=== PATIENT | female | born 1950 | race Caucasian/White ===

== ENCOUNTER 2018-08-11 20:51 | Inpatient (IN) ==
[2018-08-11] MEDS ORDERED: Sod Chloride 0.9% Inj 1,000 ML IV.SIG ONE (21:17)
--- NOTE | 2018-08-11 21:27 | ED ---
HPI General Chief Complaint: Alcohol Stated Complaint: ETOH/syncope Time Seen by Provider: 08/11/18 21:04 Source: patient, EMS and RN notes reviewed Mode of arrival: EMS Limitations: other (alcohol) History of Present Illness HPI narrative: 67-year-old female that presents to the ED via EV[facility] for evaluation of syncope and alcohol. Per report I was given and per EVAC patient apparently was found in a polyp and apparently was drinking heavily. Per patient she does drink a lot. Apparently she had a syncopal episode witnessed at the polyp. Patient fell and hit her head. Patient currently denies any symptoms but she is also intoxicated and is hard to get a history from. She does go back to sleep but is arousable. She drinks a lot and she is "an alcoholic ". She denies any other medical issues at this time. She denies any pain. She cannot really tell me this is never happened before. Again history is limited because patient is intoxicated so most the history is obtained from the EVAC report. Related Data Home Medications Medication Instructions Recorded Confirmed No Known Home Medications 08/12/18 08/12/18 Allergies Allergy/AdvReac Type Severity Reaction Status Date / Time No Known Allergies Allergy Uncoded 02/13/15 09:20 Review of Systems ROS Unobtainable ROS Unobtainable: unobtainable due to mental status [facility] Surgical History Surgical History H/O section (Acute) Social History Social History Substance History: No History of Abuse Second Hand Smoke Exposure: No Smoking Status: Never smoker How Often Do You Have a Drink Containing Alcohol: 4 or more times a week Recent Travel in [facility] within the Last 8 Weeks: No Recent Out of Country Travel within the Last 8 Weeks: No Immunization History Tetanus Immunization: Unsure Exam Narrative Exam Narrative: GENERAL: SKIN: Warm and dry. HEAD: Atraumatic. Normocephalic. EYES: Pupils equal and round 4 mms reactive to lightand accommodation.. No scleral icterus. No injection or drainage. ENT: No nasal bleeding or discharge. Mucous membranes pink and moist. Tongue is midline. No uvula deviation. NECK: Trachea midline. No JVD. CARDIOVASCULAR: Regular rate and rhythm. RESPIRATORY: No accessory muscle use. Clear to auscultation. Breath sounds equal bilaterally. GASTROINTESTINAL: Abdomen soft, non-tender, nondistended. Hepatic and splenic margins not palpable. MUSCULOSKELETAL: Extremities without clubbing, cyanosis, or edema. No obvious deformities. Full range of motion of the upper and lower extremities bilaterally. 2+ pulses bilaterally. NEUROLOGICAL: Awake and alert. No obvious cranial nerve deficits. Motor grossly within normal limits. Five out of 5 muscle strength in the arms and legs. Normal speech. PSYCHIATRIC: Intoxicated mood and affect; insight and judgment normal. Course Initial Documented Vital Signs Temperature 98.1 F 08/11/18 20:56 Pulse Rate 80 08/11/18 20:56 Blood Pressure 105/63 08/11/18 20:56 Pulse Oximetry 97 08/11/18 20:56 Last Documented Vital Signs Temperature 98.3 F 08/15/18 07:14 Pulse Rate 63 08/15/18 03:30 Respiratory Rate 16 08/15/18 07:14 Blood Pressure 128/71 08/15/18 07:14 Pulse Oximetry 97 08/15/18 07:14 Medical Decision Making MARTINA Attestation MARTINA supervised visit: Yes Attestation: I, Dr. Evangelista, have reviewed the advance practice practitioner's documentation and am in agreement, met with the patient face to face, made the diagnosis, and the medical decision making was done by me. The patient was initially evaluated by Yoel, the MARTINA. Please see their complete history and physical. *My assessment and Findings: The patient presents with a reported history of drinking alcohol this evening and then having an episode of syncope. The patient's history is limited as the patient is acutely intoxicated with alcohol. During the course of the patient's emergency department visit, the patient's history, examination, and differential diagnosis were reviewed with the patient. The patient was placed on a tar distillation supervisor with oximetry and frequent blood pressure monitoring. The patient had IV access obtained and blood work sent for analysis. The patient's diagnostic studies were reviewed and remarkable for A white count of 8.4, hemoglobin 11.6, platelets 125 with a normal differential, PT 12.4, PTT 24.2, chemistry is remarkable for a sodium of 135, glucose 124, protein corrected calcium 7.2, AST 195, ALT 147, alk phos 119, total protein 6.3, albumin 2.4. Urinalysis showed no acute abnormality, urine drug screen was positive for cannabinoids, alcohol level 295. CHEST X-RAY: Showed minimal basilar atelectasis, no other acute abnormality, a CT scan of the brain shows no acute abnormality. The patient will be admitted to the hospital for altered mentation related to alcohol intoxication associated with syncope. The patient's case including history, pertinent physical examination findings, and laboratory studies were discussed with the FP residents. It was agreed that the patient would be admitted to the the FP resident's service. The patient's results were discussed with the patient, including the plan of care. I explained that further testing and/ or monitoring is indicated based on the patient's history, examination, and/ or laboratory findings. Therefore, I recommended admission for additional evaluation. The patient expressed understanding and was agreeable with this plan. The patient was admitted to the hospital in guarded condition and sent to a bed under the care of the FP residents. MDM Narrative Medical decision making narrative: 67-year-old female that presents to the ED for evaluation of syncope and alcohol. Patient was properly examined and was found to have signs and symptoms of unclear etiology. Labs and imaging were ordered. Labs and imaging still pending at the writing of this note. Case signed out to my attending Dr Evangelista pending disposition. Medical Screen Exam Complete: Yes Emergency Medical Condition: Yes Differential Diagnosis Differential Diagnosis: Intoxication versus altered mental status versus syncope versus UTI versus alcohol abuse versus ACS Medical Records Medical records reviewed: Yes I reviewed the patient's medical records. Lab Data Lab results reviewed: Yes I reviewed the patient's lab results. Result diagrams: 08/15/18 06:16 08/15/18 06:16 Lab Results 08/11/18 08/11/18 08/11/18 Range/Units 21:21 21:22 21:22 WBC (4.0-11.0) th/mm3 RBC (4.00-5.30) mil/mm3 Hgb (11.6-15.3) gm/dL Hct (35.0-46.0) % MCV (80.0-100.0) fL MCH (27.0-34.0) pg MCHC (32.0-36.0) % RDW (11.6-17.2) % Plt Count (150-450) th/mm3 MPV (7.0-11.0) fL Prelim Diff (Auto) Neut % (Auto) (16.0-70.0) % Lymph % (Auto) (9.0-44.0) % [place] % (Auto) (0.0-8.0) % Eos % (Auto) (0.0-4.0) % Baso % (Auto) (0.0-2.0) % Neut # (Auto) (1.8-7.7) th/mm3 Lymph # (Auto) (1.0-4.8) th/mm3 [place] # (Auto) (0.0-0.9) th/mm3 Eos # (Auto) (0.0-0.4) th/mm3 Baso # (Auto) (0.0-0.2) th/mm3 WBC Differential Diff Scan Differential Comment Platelet Estimate (Normal) Platelet Morphology (Normal) PT 12.4 H (9.8-11.6) sec INR 1.2 Ratio APTT 24.2 (23.4-31.7) sec Sodium 135 L (136-145) meq/L Potassium 3.6 (3.5-5.1) meq/L Chloride 103 (98-107) meq/L Carbon Dioxide 21.0 (21.0-32.0) meq/L Anion Gap 11 (5-15) meq/L BUN 9 (7-18) mg/dL Creatinine 0.66 (0.50-1.00) mg/dL Estimated GFR 89 (>89) mL/min POC Glucose 127 H (68-110) mg/dl Random Glucose 124 H (74-106) mg/dL Calcium 6.8 L* (8.5-10.1) mg/dL Prot Corrected Calcium 7.2 L* (8.5-10.1) mg/dL Magnesium 1.8 (1.5-2.5) mg/dL Iron (50-170) mcg/dL TIBC (250-450) mcg/dL % Saturation (20-50) % Ferritin (8-252) ng/mL Total Bilirubin 0.4 (0.2-1.0) mg/dL Direct Bilirubin (0.0-0.2) mg/dL Indirect Bilirubin (0.0-0.8) mg/dL AST 195 H (15-37) U/L ALT 147 H (10-53) U/L Alkaline Phosphatase 119 H (45-117) U/L Ammonia (11-32) mcmol/L Troponin I (0.02-0.05) ng/mL Total Protein 6.3 L (6.4-8.2) g/dL Albumin 2.4 L (3.4-5.0) g/dL Ceruloplasmin (18-53) mg/dL Tumor Marker AFP (0.5-8.0) ng/mL Urine Color (Yellw/Straw) Urine Clarity (Clear) Urine pH (5.0-8.5) Ur Specific [place] (1.002-1.035) Urine Protein (Neg-Trace) mg/dL Urine Glucose (UA) (Negative) mg/dL Urine Ketones (Negative) mg/dL Urine Occult Blood (Negative) Urine Nitrate (Negative) Urine Bilirubin (Negative) Urine Urobilinogen (Less than 2) mg/dL Ur Leukocyte Esterase (Negative) Urine RBC (0-3) /hpf Urine WBC (0-5) /hpf Ur Squamous Epith Cells (0-5) /hpf Micro UA Comment Ur Microscopic Review Urine Culture Comments Urine Opiates Screen (Neg) Ur Barbiturates Screen (Neg) Ur Amphetamines Screen (Neg) U Benzodiazepines Scrn (Neg) Urine Cocaine Screen (Neg) U Cannabinoids Screen (Neg) Serum Alcohol (0-5) mg/dL Rheumatoid Factor (<14) IU/mL MICA Screen (NEGATIVE) MICA Titer MICA Pattern SS-A Antibody (<1.0 NEGATIVE) AI SS-B Antibody (<1.0 NEGATIVE) AI Sm (Bryant) Antibody (<1.0 NEGATIVE) AI SM/SIFTER AND MILLER Antibody (<1.0 NEGATIVE) AI Scl-70 Antibody (<1.0 NEGATIVE) AI Anti-ds DNA Titer (Crith) (<1:10) Anti-ds DNA (Crithidia) (NEGATIVE) Mitochondria M2 IgG Ab (0-20.0) U Anti-Smooth Muscle Ab (Negative) Hepatitis A IgM Ab (Nonreactive) Hep Bs Antigen (Nonreactive) Hep B Core IgM Ab (Nonreactive) Hep C IgG Ab (Nonreactive) HCV RNA (PCR) IUs/ml IU/mL HCV RNA PCR log IUs/ml LogIU/mL 08/11/18 08/11/18 08/12/18 Range/Units 21:22 21:22 05:30 WBC 8.4 (4.0-11.0) th/mm3 RBC 3.52 L (4.00-5.30) mil/mm3 Hgb 11.6 (11.6-15.3) gm/dL Hct 33.5 L (35.0-46.0) % MCV 95.2 (80.0-100.0) fL MCH 33.0 (27.0-34.0) pg MCHC 34.7 (32.0-36.0) % RDW 12.8 (11.6-17.2) % Plt Count 125 L (150-450) th/mm3 MPV 8.6 (7.0-11.0) fL Prelim Diff (Auto) Slide review pending Neut % (Auto) 47.1 (16.0-70.0) % Lymph % (Auto) 40.9 (9.0-44.0) % [place] % (Auto) 7.5 (0.0-8.0) % Eos % (Auto) 3.5 (0.0-4.0) % Baso % (Auto) 1.0 (0.0-2.0) % Neut # (Auto) 4.0 (1.8-7.7) th/mm3 Lymph # (Auto) 3.4 (1.0-4.8) th/mm3 [place] # (Auto) 0.6 (0.0-0.9) th/mm3 Eos # (Auto) 0.3 (0.0-0.4) th/mm3 Baso # (Auto) 0.1 (0.0-0.2) th/mm3 WBC Differential . Diff Scan Auto diff confirmed Differential Comment . Platelet Estimate (Normal) Platelet Morphology (Normal) PT (9.8-11.6) sec INR Ratio APTT (23.4-31.7) sec Sodium (136-145) meq/L Potassium (3.5-5.1) meq/L Chloride (98-107) meq/L Carbon Dioxide (21.0-32.0) meq/L Anion Gap (5-15) meq/L BUN (7-18) mg/dL Creatinine (0.50-1.00) mg/dL Estimated GFR (>89) mL/min POC Glucose (68-110) mg/dl Random Glucose (74-106) mg/dL Calcium (8.5-10.1) mg/dL Prot Corrected Calcium (8.5-10.1) mg/dL Magnesium (1.5-2.5) mg/dL Iron (50-170) mcg/dL TIBC (250-450) mcg/dL % Saturation (20-50) % Ferritin (8-252) ng/mL Total Bilirubin (0.2-1.0) mg/dL Direct Bilirubin (0.0-0.2) mg/dL Indirect Bilirubin (0.0-0.8) mg/dL AST (15-37) U/L ALT (10-53) U/L Alkaline Phosphatase (45-117) U/L Ammonia (11-32) mcmol/L Troponin I Less than 0.02 L (0.02-0.05) ng/mL Total Protein (6.4-8.2) g/dL Albumin (3.4-5.0) g/dL Ceruloplasmin (18-53) mg/dL Tumor Marker AFP (0.5-8.0) ng/mL Urine Color Straw (Yellw/Straw) Urine Clarity Clear (Clear) Urine pH 6.0 (5.0-8.5) Ur Specific [place] 1.003 (1.002-1.035) Urine Protein Negative (Neg-Trace) mg/dL Urine Glucose (UA) Negative (Negative) mg/dL Urine Ketones Negative (Negative) mg/dL Urine Occult Blood Negative (Negative) Urine Nitrate Negative (Negative) Urine Bilirubin Negative (Negative) Urine Urobilinogen Less than 2 (Less than 2) mg/dL Ur Leukocyte Esterase Negative (Negative) Urine RBC 1 (0-3) /hpf Urine WBC 1 (0-5) /hpf Ur Squamous Epith Cells <1 (0-5) /hpf Micro UA Comment Culture not ind Ur Microscopic Review Not Reportable Urine Culture Comments Culture not ind Urine Opiates Screen (Neg) Ur Barbiturates Screen (Neg) Ur Amphetamines Screen (Neg) U Benzodiazepines Scrn (Neg) Urine Cocaine Screen (Neg) U Cannabinoids Screen (Neg) Serum Alcohol 298 H (0-5) mg/dL Rheumatoid Factor (<14) IU/mL MICA Screen (NEGATIVE) MICA Titer MICA Pattern SS-A Antibody (<1.0 NEGATIVE) AI SS-B Antibody (<1.0 NEGATIVE) AI Sm (Bryant) Antibody (<1.0 NEGATIVE) AI SM/SIFTER AND MILLER Antibody (<1.0 NEGATIVE) AI Scl-70 Antibody (<1.0 NEGATIVE) AI Anti-ds DNA Titer (Crith) (<1:10) Anti-ds DNA (Crithidia) (NEGATIVE) Mitochondria M2 IgG Ab (0-20.0) U Anti-Smooth Muscle Ab (Negative) Hepatitis A IgM Ab (Nonreactive) Hep Bs Antigen (Nonreactive) Hep B Core IgM Ab (Nonreactive) Hep C IgG Ab (Nonreactive) HCV RNA (PCR) IUs/ml IU/mL HCV RNA PCR log IUs/ml LogIU/mL 08/12/18 08/12/18 08/12/18 Range/Units 05:30 10:05 10:05 WBC 4.5 (4.0-11.0) th/mm3 RBC 3.49 L (4.00-5.30) mil/mm3 Hgb 11.2 L (11.6-15.3) gm/dL Hct 33.9 L (35.0-46.0) % MCV 96.9 (80.0-100.0) fL MCH 32.1 (27.0-34.0) pg MCHC 33.1 (32.0-36.0) % RDW 13.6 (11.6-17.2) % Plt Count 102 L (150-450) th/mm3 MPV 7.8 (7.0-11.0) fL Prelim Diff (Auto) Neut % (Auto) 59.6 (16.0-70.0) % Lymph % (Auto) 30.8 (9.0-44.0) % [place] % (Auto) 6.4 (0.0-8.0) % Eos % (Auto) 2.8 (0.0-4.0) % Baso % (Auto) 0.4 (0.0-2.0) % Neut # (Auto) 2.7 (1.8-7.7) th/mm3 Lymph # (Auto) 1.4 (1.0-4.8) th/mm3 [place] # (Auto) 0.3 (0.0-0.9) th/mm3 Eos # (Auto) 0.1 (0.0-0.4) th/mm3 Baso # (Auto) 0.0 (0.0-0.2) th/mm3 WBC Differential . Diff Scan Differential Comment Auto diff final Platelet Estimate (Normal) Platelet Morphology (Normal) PT (9.8-11.6) sec INR Ratio APTT (23.4-31.7) sec Sodium 140 (136-145) meq/L Potassium 3.9 (3.5-5.1) meq/L Chloride 109 H (98-107) meq/L Carbon Dioxide 18.1 L (21.0-32.0) meq/L Anion Gap 13 (5-15) meq/L BUN 6 L (7-18) mg/dL Creatinine 0.46 L (0.50-1.00) mg/dL Estimated GFR Greater than 89 (>89) mL/min POC Glucose (68-110) mg/dl Random Glucose 88 (74-106) mg/dL Calcium 7.5 L (8.5-10.1) mg/dL Prot Corrected Calcium (8.5-10.1) mg/dL Magnesium 1.8 (1.5-2.5) mg/dL Iron (50-170) mcg/dL TIBC (250-450) mcg/dL % Saturation (20-50) % Ferritin (8-252) ng/mL Total Bilirubin 0.4 (0.2-1.0) mg/dL Direct Bilirubin (0.0-0.2) mg/dL Indirect Bilirubin (0.0-0.8) mg/dL AST 174 H (15-37) U/L ALT 140 H (10-53) U/L Alkaline Phosphatase 120 H (45-117) U/L Ammonia (11-32) mcmol/L Troponin I (0.02-0.05) ng/mL Total Protein 6.2 L (6.4-8.2) g/dL Albumin 2.4 L (3.4-5.0) g/dL Ceruloplasmin (18-53) mg/dL Tumor Marker AFP (0.5-8.0) ng/mL Urine Color (Yellw/Straw) Urine Clarity (Clear) Urine pH (5.0-8.5) Ur Specific [place] (1.002-1.035) Urine Protein (Neg-Trace) mg/dL Urine Glucose (UA) (Negative) mg/dL Urine Ketones (Negative) mg/dL Urine Occult Blood (Negative) Urine Nitrate (Negative) Urine Bilirubin (Negative) Urine Urobilinogen (Less than 2) mg/dL Ur Leukocyte Esterase (Negative) Urine RBC (0-3) /hpf Urine WBC (0-5) /hpf Ur Squamous Epith Cells (0-5) /hpf Micro UA Comment Ur Microscopic Review Urine Culture Comments Urine Opiates Screen Neg (Neg) Ur Barbiturates Screen Neg (Neg) Ur Amphetamines Screen Neg (Neg) U Benzodiazepines Scrn Neg (Neg) Urine Cocaine Screen Neg (Neg) U Cannabinoids Screen Pos H (Neg) Serum Alcohol (0-5) mg/dL Rheumatoid Factor (<14) IU/mL MICA Screen (NEGATIVE) MICA Titer MICA Pattern SS-A Antibody (<1.0 NEGATIVE) AI SS-B Antibody (<1.0 NEGATIVE) AI Sm (Bryant) Antibody (<1.0 NEGATIVE) AI SM/SIFTER AND MILLER Antibody (<1.0 NEGATIVE) AI Scl-70 Antibody (<1.0 NEGATIVE) AI Anti-ds DNA Titer (Crith) (<1:10) Anti-ds DNA (Crithidia) (NEGATIVE) Mitochondria M2 IgG Ab (0-20.0) U Anti-Smooth Muscle Ab (Negative) Hepatitis A IgM Ab (Nonreactive) Hep Bs Antigen (Nonreactive) Hep B Core IgM Ab (Nonreactive) Hep C IgG Ab (Nonreactive) HCV RNA (PCR) IUs/ml IU/mL HCV RNA PCR log IUs/ml LogIU/mL 08/12/18 08/12/18 08/13/18 Range/Units 10:05 10:05 12:00 WBC 4.1 (4.0-11.0) th/mm3 RBC 3.76 L (4.00-5.30) mil/mm3 Hgb 12.1 (11.6-15.3) gm/dL Hct 36.3 (35.0-46.0) % MCV 96.5 (80.0-100.0) fL MCH 32.2 (27.0-34.0) pg MCHC 33.4 (32.0-36.0) % RDW 13.5 (11.6-17.2) % Plt Count 101 L (150-450) th/mm3 MPV 8.0 (7.0-11.0) fL Prelim Diff (Auto) Neut % (Auto) (16.0-70.0) % Lymph % (Auto) (9.0-44.0) % [place] % (Auto) (0.0-8.0) % Eos % (Auto) (0.0-4.0) % Baso % (Auto) (0.0-2.0) % Neut # (Auto) (1.8-7.7) th/mm3 Lymph # (Auto) (1.0-4.8) th/mm3 [place] # (Auto) (0.0-0.9) th/mm3 Eos # (Auto) (0.0-0.4) th/mm3 Baso # (Auto) (0.0-0.2) th/mm3 WBC Differential Diff Scan Differential Comment Platelet Estimate (Normal) Platelet Morphology (Normal) PT (9.8-11.6) sec INR Ratio APTT (23.4-31.7) sec Sodium (136-145) meq/L Potassium (3.5-5.1) meq/L Chloride (98-107) meq/L Carbon Dioxide (21.0-32.0) meq/L Anion Gap (5-15) meq/L BUN (7-18) mg/dL Creatinine (0.50-1.00) mg/dL Estimated GFR (>89) mL/min POC Glucose (68-110) mg/dl Random Glucose (74-106) mg/dL Calcium (8.5-10.1) mg/dL Prot Corrected Calcium (8.5-10.1) mg/dL Magnesium Cancelled (1.5-2.5) mg/dL Iron (50-170) mcg/dL TIBC (250-450) mcg/dL % Saturation (20-50) % Ferritin (8-252) ng/mL Total Bilirubin (0.2-1.0) mg/dL Direct Bilirubin (0.0-0.2) mg/dL Indirect Bilirubin (0.0-0.8) mg/dL AST (15-37) U/L ALT (10-53) U/L Alkaline Phosphatase (45-117) U/L Ammonia 43 H (11-32) mcmol/L Troponin I (0.02-0.05) ng/mL Total Protein (6.4-8.2) g/dL Albumin (3.4-5.0) g/dL Ceruloplasmin (18-53) mg/dL Tumor Marker AFP (0.5-8.0) ng/mL Urine Color (Yellw/Straw) Urine Clarity (Clear) Urine pH (5.0-8.5) Ur Specific [place] (1.002-1.035) Urine Protein (Neg-Trace) mg/dL Urine Glucose (UA) (Negative) mg/dL Urine Ketones (Negative) mg/dL Urine Occult Blood (Negative) Urine Nitrate (Negative) Urine Bilirubin (Negative) Urine Urobilinogen (Less than 2) mg/dL Ur Leukocyte Esterase (Negative) Urine RBC (0-3) /hpf Urine WBC (0-5) /hpf Ur Squamous Epith Cells (0-5) /hpf Micro UA Comment Ur Microscopic Review Urine Culture Comments Urine Opiates Screen (Neg) Ur Barbiturates Screen (Neg) Ur Amphetamines Screen (Neg) U Benzodiazepines Scrn (Neg) Urine Cocaine Screen (Neg) U Cannabinoids Screen (Neg) Serum Alcohol (0-5) mg/dL Rheumatoid Factor (<14) IU/mL MICA Screen (NEGATIVE) MICA Titer MICA Pattern SS-A Antibody (<1.0 NEGATIVE) AI SS-B Antibody (<1.0 NEGATIVE) AI Sm (Bryant) Antibody (<1.0 NEGATIVE) AI SM/SIFTER AND MILLER Antibody (<1.0 NEGATIVE) AI Scl-70 Antibody (<1.0 NEGATIVE) AI Anti-ds DNA Titer (Crith) (<1:10) Anti-ds DNA (Crithidia) (NEGATIVE) Mitochondria M2 IgG Ab (0-20.0) U Anti-Smooth Muscle Ab (Negative) Hepatitis A IgM Ab (Nonreactive) Hep Bs Antigen (Nonreactive) Hep B Core IgM Ab (Nonreactive) Hep C IgG Ab (Nonreactive) HCV RNA (PCR) IUs/ml IU/mL HCV RNA PCR log IUs/ml LogIU/mL 08/13/18 08/13/18 08/13/18 Range/Units 12:00 12:00 15:49 WBC (4.0-11.0) th/mm3 RBC (4.00-5.30) mil/mm3 Hgb (11.6-15.3) gm/dL Hct (35.0-46.0) % MCV (80.0-100.0) fL MCH (27.0-34.0) pg MCHC (32.0-36.0) % RDW (11.6-17.2) % Plt Count (150-450) th/mm3 MPV (7.0-11.0) fL Prelim Diff (Auto) Neut % (Auto) (16.0-70.0) % Lymph % (Auto) (9.0-44.0) % [place] % (Auto) (0.0-8.0) % Eos % (Auto) (0.0-4.0) % Baso % (Auto) (0.0-2.0) % Neut # (Auto) (1.8-7.7) th/mm3 Lymph # (Auto) (1.0-4.8) th/mm3 [place] # (Auto) (0.0-0.9) th/mm3 Eos # (Auto) (0.0-0.4) th/mm3 Baso # (Auto) (0.0-0.2) th/mm3 WBC Differential Diff Scan Differential Comment Platelet Estimate (Normal) Platelet Morphology (Normal) PT (9.8-11.6) sec INR Ratio APTT (23.4-31.7) sec Sodium 144 (136-145) meq/L Potassium 3.9 (3.5-5.1) meq/L Chloride 109 H (98-107) meq/L Carbon Dioxide 28.2 D (21.0-32.0) meq/L Anion Gap 7 (5-15) meq/L BUN 11 (7-18) mg/dL Creatinine 0.62 (0.50-1.00) mg/dL Estimated GFR Greater than 89 (>89) mL/min POC Glucose (68-110) mg/dl Random Glucose 115 H (74-106) mg/dL Calcium 7.7 L (8.5-10.1) mg/dL Prot Corrected Calcium (8.5-10.1) mg/dL Magnesium (1.5-2.5) mg/dL Iron 105 (50-170) mcg/dL TIBC 370 (250-450) mcg/dL % Saturation 28.4 (20-50) % Ferritin 38 Cancelled (8-252) ng/mL Total Bilirubin 0.4 Cancelled (0.2-1.0) mg/dL Direct Bilirubin 0.2 Cancelled (0.0-0.2) mg/dL Indirect Bilirubin 0.2 Cancelled (0.0-0.8) mg/dL AST 146 H Cancelled (15-37) U/L ALT 127 H Cancelled (10-53) U/L Alkaline Phosphatase 128 H Cancelled (45-117) U/L Ammonia (11-32) mcmol/L Troponin I (0.02-0.05) ng/mL Total Protein 6.2 L Cancelled (6.4-8.2) g/dL Albumin 2.5 L Cancelled (3.4-5.0) g/dL Ceruloplasmin (18-53) mg/dL Tumor Marker AFP 13.3 H (0.5-8.0) ng/mL Urine Color (Yellw/Straw) Urine Clarity (Clear) Urine pH (5.0-8.5) Ur Specific [place] (1.002-1.035) Urine Protein (Neg-Trace) mg/dL Urine Glucose (UA) (Negative) mg/dL Urine Ketones (Negative) mg/dL Urine Occult Blood (Negative) Urine Nitrate (Negative) Urine Bilirubin (Negative) Urine Urobilinogen (Less than 2) mg/dL Ur Leukocyte Esterase (Negative) Urine RBC (0-3) /hpf Urine WBC (0-5) /hpf Ur Squamous Epith Cells (0-5) /hpf Micro UA Comment Ur Microscopic Review Urine Culture Comments Urine Opiates Screen (Neg) Ur Barbiturates Screen (Neg) Ur Amphetamines Screen (Neg) U Benzodiazepines Scrn (Neg) Urine Cocaine Screen (Neg) U Cannabinoids Screen (Neg) Serum Alcohol (0-5) mg/dL Rheumatoid Factor (<14) IU/mL MICA Screen (NEGATIVE) MICA Titer MICA Pattern SS-A Antibody (<1.0 NEGATIVE) AI SS-B Antibody (<1.0 NEGATIVE) AI Sm (Bryant) Antibody (<1.0 NEGATIVE) AI SM/SIFTER AND MILLER Antibody (<1.0 NEGATIVE) AI Scl-70 Antibody (<1.0 NEGATIVE) AI Anti-ds DNA Titer (Crith) (<1:10) Anti-ds DNA (Crithidia) (NEGATIVE) Mitochondria M2 IgG Ab (0-20.0) U Anti-Smooth Muscle Ab (Negative) Hepatitis A IgM Ab (Nonreactive) Hep Bs Antigen (Nonreactive) Hep B Core IgM Ab (Nonreactive) Hep C IgG Ab (Nonreactive) HCV RNA (PCR) IUs/ml IU/mL HCV RNA PCR log IUs/ml LogIU/mL 08/13/18 08/13/18 08/14/18 Range/Units 15:49 15:49 07:19 WBC 4.6 (4.0-11.0) th/mm3 RBC 3.82 L (4.00-5.30) mil/mm3 Hgb 12.3 (11.6-15.3) gm/dL Hct 36.5 (35.0-46.0) % MCV 95.5 (80.0-100.0) fL MCH 32.2 (27.0-34.0) pg MCHC 33.7 (32.0-36.0) % RDW 13.3 (11.6-17.2) % Plt Count 99 L (150-450) th/mm3 MPV 9.0 (7.0-11.0) fL Prelim Diff (Auto) Slide review pending Neut % (Auto) 55.7 (16.0-70.0) % Lymph % (Auto) 30.6 (9.0-44.0) % [place] % (Auto) 8.6 H (0.0-8.0) % Eos % (Auto) 4.2 H (0.0-4.0) % Baso % (Auto) 0.9 (0.0-2.0) % Neut # (Auto) 2.5 (1.8-7.7) th/mm3 Lymph # (Auto) 1.4 (1.0-4.8) th/mm3 [place] # (Auto) 0.4 (0.0-0.9) th/mm3 Eos # (Auto) 0.2 (0.0-0.4) th/mm3 Baso # (Auto) 0.0 (0.0-0.2) th/mm3 WBC Differential . Diff Scan Auto diff confirmed Differential Comment . Platelet Estimate Low L (Normal) Platelet Morphology Normal (Normal) PT (9.8-11.6) sec INR Ratio APTT (23.4-31.7) sec Sodium (136-145) meq/L Potassium (3.5-5.1) meq/L Chloride (98-107) meq/L Carbon Dioxide (21.0-32.0) meq/L Anion Gap (5-15) meq/L BUN (7-18) mg/dL Creatinine (0.50-1.00) mg/dL Estimated GFR (>89) mL/min POC Glucose (68-110) mg/dl Random Glucose (74-106) mg/dL Calcium (8.5-10.1) mg/dL Prot Corrected Calcium (8.5-10.1) mg/dL Magnesium (1.5-2.5) mg/dL Iron (50-170) mcg/dL TIBC (250-450) mcg/dL % Saturation (20-50) % Ferritin (8-252) ng/mL Total Bilirubin (0.2-1.0) mg/dL Direct Bilirubin (0.0-0.2) mg/dL Indirect Bilirubin (0.0-0.8) mg/dL AST (15-37) U/L ALT (10-53) U/L Alkaline Phosphatase (45-117) U/L Ammonia (11-32) mcmol/L Troponin I (0.02-0.05) ng/mL Total Protein (6.4-8.2) g/dL Albumin (3.4-5.0) g/dL Ceruloplasmin 25 (18-53) mg/dL Tumor Marker AFP (0.5-8.0) ng/mL Urine Color (Yellw/Straw) Urine Clarity (Clear) Urine pH (5.0-8.5) Ur Specific [place] (1.002-1.035) Urine Protein (Neg-Trace) mg/dL Urine Glucose (UA) (Negative) mg/dL Urine Ketones (Negative) mg/dL Urine Occult Blood (Negative) Urine Nitrate (Negative) Urine Bilirubin (Negative) Urine Urobilinogen (Less than 2) mg/dL Ur Leukocyte Esterase (Negative) Urine RBC (0-3) /hpf Urine WBC (0-5) /hpf Ur Squamous Epith Cells (0-5) /hpf Micro UA Comment Ur Microscopic Review Urine Culture Comments Urine Opiates Screen (Neg) Ur Barbiturates Screen (Neg) Ur Amphetamines Screen (Neg) U Benzodiazepines Scrn (Neg) Urine Cocaine Screen (Neg) U Cannabinoids Screen (Neg) Serum Alcohol (0-5) mg/dL Rheumatoid Factor 104 H (<14) IU/mL MICA Screen Negative (NEGATIVE) MICA Titer ND MICA Pattern ND SS-A Antibody <1.0 neg (<1.0 NEGATIVE) AI SS-B Antibody <1.0 neg (<1.0 NEGATIVE) AI Sm (Bryant) Antibody <1.0 neg (<1.0 NEGATIVE) AI SM/SIFTER AND MILLER Antibody <1.0 neg (<1.0 NEGATIVE) AI Scl-70 Antibody <1.0 neg (<1.0 NEGATIVE) AI Anti-ds DNA Titer (Crith) 1:80 H (<1:10) Anti-ds DNA (Crithidia) Positive A (NEGATIVE) Mitochondria M2 IgG Ab Less than 20.0 (0-20.0) U Anti-Smooth Muscle Ab Negative (Negative) Hepatitis A IgM Ab Nonreactive (Nonreactive) Hep Bs Antigen Nonreactive (Nonreactive) Hep B Core IgM Ab Nonreactive (Nonreactive) Hep C IgG Ab Reactive H (Nonreactive) HCV RNA (PCR) IUs/ml IU/mL HCV RNA PCR log IUs/ml LogIU/mL 08/14/18 08/14/18 08/15/18 Range/Units 07:19 12:28 06:16 WBC 5.4 (4.0-11.0) th/mm3 RBC 3.86 L (4.00-5.30) mil/mm3 Hgb 12.5 (11.6-15.3) gm/dL Hct 36.7 (35.0-46.0) % MCV 94.9 (80.0-100.0) fL MCH 32.2 (27.0-34.0) pg MCHC 34.0 (32.0-36.0) % RDW 13.1 (11.6-17.2) % Plt Count 103 L (150-450) th/mm3 MPV 8.4 (7.0-11.0) fL Prelim Diff (Auto) Neut % (Auto) 59.9 (16.0-70.0) % Lymph % (Auto) 27.7 (9.0-44.0) % [place] % (Auto) 7.4 (0.0-8.0) % Eos % (Auto) 4.3 H (0.0-4.0) % Baso % (Auto) 0.7 (0.0-2.0) % Neut # (Auto) 3.2 (1.8-7.7) th/mm3 Lymph # (Auto) 1.5 (1.0-4.8) th/mm3 [place] # (Auto) 0.4 (0.0-0.9) th/mm3 Eos # (Auto) 0.2 (0.0-0.4) th/mm3 Baso # (Auto) 0.0 (0.0-0.2) th/mm3 WBC Differential . Diff Scan Differential Comment Auto diff final Platelet Estimate (Normal) Platelet Morphology (Normal) PT (9.8-11.6) sec INR Ratio APTT (23.4-31.7) sec Sodium 142 (136-145) meq/L Potassium 3.9 (3.5-5.1) meq/L Chloride 108 H (98-107) meq/L Carbon Dioxide 27.2 (21.0-32.0) meq/L Anion Gap 7 (5-15) meq/L BUN 11 (7-18) mg/dL Creatinine 0.63 (0.50-1.00) mg/dL Estimated GFR Greater than 89 (>89) mL/min POC Glucose (68-110) mg/dl Random Glucose 104 (74-106) mg/dL Calcium 7.7 L (8.5-10.1) mg/dL Prot Corrected Calcium (8.5-10.1) mg/dL Magnesium (1.5-2.5) mg/dL Iron (50-170) mcg/dL TIBC (250-450) mcg/dL % Saturation (20-50) % Ferritin (8-252) ng/mL Total Bilirubin 0.6 (0.2-1.0) mg/dL Direct Bilirubin (0.0-0.2) mg/dL Indirect Bilirubin (0.0-0.8) mg/dL AST 166 H (15-37) U/L ALT 129 H (10-53) U/L Alkaline Phosphatase 132 H (45-117) U/L Ammonia (11-32) mcmol/L Troponin I (0.02-0.05) ng/mL Total Protein 6.6 (6.4-8.2) g/dL Albumin 2.4 L (3.4-5.0) g/dL Ceruloplasmin (18-53) mg/dL Tumor Marker AFP (0.5-8.0) ng/mL Urine Color (Yellw/Straw) Urine Clarity (Clear) Urine pH (5.0-8.5) Ur Specific [place] (1.002-1.035) Urine Protein (Neg-Trace) mg/dL Urine Glucose (UA) (Negative) mg/dL Urine Ketones (Negative) mg/dL Urine Occult Blood (Negative) Urine Nitrate (Negative) Urine Bilirubin (Negative) Urine Urobilinogen (Less than 2) mg/dL Ur Leukocyte Esterase (Negative) Urine RBC (0-3) /hpf Urine WBC (0-5) /hpf Ur Squamous Epith Cells (0-5) /hpf Micro UA Comment Ur Microscopic Review Urine Culture Comments Urine Opiates Screen (Neg) Ur Barbiturates Screen (Neg) Ur Amphetamines Screen (Neg) U Benzodiazepines Scrn (Neg) Urine Cocaine Screen (Neg) U Cannabinoids Screen (Neg) Serum Alcohol (0-5) mg/dL Rheumatoid Factor (<14) IU/mL MICA Screen (NEGATIVE) MICA Titer MICA Pattern SS-A Antibody (<1.0 NEGATIVE) AI SS-B Antibody (<1.0 NEGATIVE) AI Sm (Bryant) Antibody (<1.0 NEGATIVE) AI SM/SIFTER AND MILLER Antibody (<1.0 NEGATIVE) AI Scl-70 Antibody (<1.0 NEGATIVE) AI Anti-ds DNA Titer (Crith) (<1:10) Anti-ds DNA (Crithidia) (NEGATIVE) Mitochondria M2 IgG Ab (0-20.0) U Anti-Smooth Muscle Ab (Negative) Hepatitis A IgM Ab (Nonreactive) Hep Bs Antigen (Nonreactive) Hep B Core IgM Ab (Nonreactive) Hep C IgG Ab (Nonreactive) HCV RNA (PCR) IUs/ml [id number] H IU/mL HCV RNA PCR log IUs/ml 6.10 H LogIU/mL 08/15/18 Range/Units 06:16 WBC (4.0-11.0) th/mm3 RBC (4.00-5.30) mil/mm3 Hgb (11.6-15.3) gm/dL Hct (35.0-46.0) % MCV (80.0-100.0) fL MCH (27.0-34.0) pg MCHC (32.0-36.0) % RDW (11.6-17.2) % Plt Count (150-450) th/mm3 MPV (7.0-11.0) fL Prelim Diff (Auto) Neut % (Auto) (16.0-70.0) % Lymph % (Auto) (9.0-44.0) % [place] % (Auto) (0.0-8.0) % Eos % (Auto) (0.0-4.0) % Baso % (Auto) (0.0-2.0) % Neut # (Auto) (1.8-7.7) th/mm3 Lymph # (Auto) (1.0-4.8) th/mm3 [place] # (Auto) (0.0-0.9) th/mm3 Eos # (Auto) (0.0-0.4) th/mm3 Baso # (Auto) (0.0-0.2) th/mm3 WBC Differential Diff Scan Differential Comment Platelet Estimate (Normal) Platelet Morphology (Normal) PT (9.8-11.6) sec INR Ratio APTT (23.4-31.7) sec Sodium 142 (136-145) meq/L Potassium 4.1 (3.5-5.1) meq/L Chloride 108 H (98-107) meq/L Carbon Dioxide 27.4 (21.0-32.0) meq/L Anion Gap 7 (5-15) meq/L BUN 12 (7-18) mg/dL Creatinine 0.62 (0.50-1.00) mg/dL Estimated GFR Greater than 89 (>89) mL/min POC Glucose (68-110) mg/dl Random Glucose 104 (74-106) mg/dL Calcium 8.3 L (8.5-10.1) mg/dL Prot Corrected Calcium (8.5-10.1) mg/dL Magnesium (1.5-2.5) mg/dL Iron (50-170) mcg/dL TIBC (250-450) mcg/dL % Saturation (20-50) % Ferritin (8-252) ng/mL Total Bilirubin 0.5 (0.2-1.0) mg/dL Direct Bilirubin (0.0-0.2) mg/dL Indirect Bilirubin (0.0-0.8) mg/dL AST 173 H (15-37) U/L ALT 138 H (10-53) U/L Alkaline Phosphatase 129 H (45-117) U/L Ammonia (11-32) mcmol/L Troponin I (0.02-0.05) ng/mL Total Protein 6.5 (6.4-8.2) g/dL Albumin 2.4 L (3.4-5.0) g/dL Ceruloplasmin (18-53) mg/dL Tumor Marker AFP (0.5-8.0) ng/mL Urine Color (Yellw/Straw) Urine Clarity (Clear) Urine pH (5.0-8.5) Ur Specific [place] (1.002-1.035) Urine Protein (Neg-Trace) mg/dL Urine Glucose (UA) (Negative) mg/dL Urine Ketones (Negative) mg/dL Urine Occult Blood (Negative) Urine Nitrate (Negative) Urine Bilirubin (Negative) Urine Urobilinogen (Less than 2) mg/dL Ur Leukocyte Esterase (Negative) Urine RBC (0-3) /hpf Urine WBC (0-5) /hpf Ur Squamous Epith Cells (0-5) /hpf Micro UA Comment Ur Microscopic Review Urine Culture Comments Urine Opiates Screen (Neg) Ur Barbiturates Screen (Neg) Ur Amphetamines Screen (Neg) U Benzodiazepines Scrn (Neg) Urine Cocaine Screen (Neg) U Cannabinoids Screen (Neg) Serum Alcohol (0-5) mg/dL Rheumatoid Factor (<14) IU/mL MICA Screen (NEGATIVE) MICA Titer MICA Pattern SS-A Antibody (<1.0 NEGATIVE) AI SS-B Antibody (<1.0 NEGATIVE) AI Sm (Bryant) Antibody (<1.0 NEGATIVE) AI SM/SIFTER AND MILLER Antibody (<1.0 NEGATIVE) AI Scl-70 Antibody (<1.0 NEGATIVE) AI Anti-ds DNA Titer (Crith) (<1:10) Anti-ds DNA (Crithidia) (NEGATIVE) Mitochondria M2 IgG Ab (0-20.0) U Anti-Smooth Muscle Ab (Negative) Hepatitis A IgM Ab (Nonreactive) Hep Bs Antigen (Nonreactive) Hep B Core IgM Ab (Nonreactive) Hep C IgG Ab (Nonreactive) HCV RNA (PCR) IUs/ml IU/mL HCV RNA PCR log IUs/ml LogIU/mL Imaging Data Radiologist's impression: Chest X-Ray 08/11/18 21:17 CONCLUSION: Minimal basilar atelectasis. No effusion or pneumothorax. Head CT 08/12/18 00:00 CONCLUSION: Negative CT Head non contrast. . Liver Ultrasound 08/13/18 00:00 CONCLUSION: 1. Cirrhotic liver appearance with multiple discrete hepatic nodules. Further evaluation with Eovist MRI suggested 2. Splenomegaly and ascites. 3. Nonspecific gallbladder wall thickening. Discharge Plan Discharge Disposition Patient Disposition: 01 Discharge Home Discharge Condition Condition: Stable Discharge Order Discharge Orders: Discharge Order (Routine); Ordered 08/15/18 Ordered By: Chloe Evangelista Discharge Details Discharge Comment: Follow up with PCP in one week. Follow up with GI physicians in 1 week. Physicians Team ED Provider: Cher Evangelista ED Midlevel Provider: Yoel Green Primary Care Provider: Primary Care Shantel Julian Attending Provider: Cullen Sullivan Other Providers: Phylicia Barrera ; Jose Angel Gutierrez Status ED Status: Left Department Discharge Information Discharge Date/Time: 08/12/18 03:30
--- NOTE | 2018-08-11 21:40 | XR ---
EXAM DATE: 08/11/2018 9:36 PM EST AGE/SEX: 67 years / Female INDICATIONS: Chest pain. CLINICAL DATA: This is the patient's initial encounter. Patient reports that signs and symptoms have been present for 1 day and indicates a pain score of 0/10. MEDICAL/SURGICAL HISTORY: Non-responsive. Non-responsive. COMPARISON: No prior exams available for comparison. FINDINGS: A single AP view of the chest demonstrates the lungs to be symmetrically aerated without evidence of mass, infiltrate or effusion. Minimal basilar atelectasis. The cardiomediastinal contours are unrema rkable. Osseous structures are intact. CONCLUSION: Minimal basilar atelectasis. No effusion or pneumothorax. Electronically signed by: Gaurav Sanchez MD 08/11/2018 9:38 PM EST
[2018-08-11 21:43] LABS: Activated Partial Thrombo Time 24.2 sec (23.4-31.7); INR 1.2 Ratio; Prothrombin Time 12.4 sec (9.8-11.6)
[2018-08-11 21:45] LABS: Baso # (Auto) 0.1 th/mm3 (0.0-0.2); Eos # (Auto) 0.3 th/mm3 (0.0-0.4); Eos % (Auto) 3.5 % (0.0-4.0); Hematocrit 33.5 % (35.0-46.0); Hemoglobin 11.6 gm/dL (11.6-15.3); Lymph # (Auto) 3.4 th/mm3 (1.0-4.8); Lymph % (Auto) 40.9 % (9.0-44.0); Mean Corpuscular HGB Conc 34.7 % (32.0-36.0); Mean Corpuscular Volume 95.2 fL (80.0-100.0); Mean Platelet Volume 8.6 fL (7.0-11.0); Mono # (Auto) 0.6 th/mm3 (0.0-0.9); Mono % (Auto) 7.5 % (0.0-8.0); Neut % (Auto) 47.1 % (16.0-70.0); Platelet Count 125 th/mm3 (150-450); Red Blood Count 3.52 mil/mm3 (4.00-5.30); Red Cell Distribution Width 12.8 % (11.6-17.2); White Blood Count 8.4 th/mm3 (4.0-11.0)
[2018-08-11 21:53] LABS: Albumin 2.4 g/dL (3.4-5.0); Alcohol 298 mg/dL (0-5); Calcium 6.8 mg/dL (8.5-10.1); Magnesium 1.8 mg/dL (1.5-2.5); Potassium 3.6 meq/L (3.5-5.1); Total Protein 6.3 g/dL (6.4-8.2)
[2018-08-11] MEDS ORDERED: Calcium Chloride Inj 1 GM in Sodium Chlor 0.9% Inj 100 ML IV.SIG ONE (22:26)
--- NOTE | 2018-08-12 00:58 | CT ---
EXAM DATE: 08/12/2018 12:28 AM EST AGE/SEX: 67 years / Female INDICATIONS: Altered mental status; ETOH. CLINICAL DATA: This is the patient's initial encounter. Patient reports that signs and symptoms have been present for 1 day and indicates a pain score of Nonresponsive. MEDICAL/SURGICAL HISTORY: None. None. RADIATION DOSE: 56.35 CTDI (mGy) COMPARISON: No prior exams available for comparison. TECHNIQUE: CT of the head without contrast. Using automated exposure control and adjustment of the mA and/or kV according to patient size, radiation dose was kept as low as reasonably achievable to ob tain optimal diagnostic quality images. DICOM format image data is available electronically for revi ew and comparison. FINDINGS: Cerebrum: The ventricles are normal for age. No evidence of midline shift, mass lesion, hemorrhage or acute infarction. No extraaxial fluid collections are seen. Posterior Fossa: The cerebellum and brainstem are intact. The 4th ventricle is midline. The cerebe llopontine angle is unremarkable. Extracranial: The visualized portion of the orbits is intact. Skull: The calvaria is intact. No evidence of skull fracture. CONCLUSION: Negative CT Head non contrast. . Electronically signed by: Devendra Davila MD 08/12/2018 12:57 AM EST
--- NOTE | 2018-08-12 01:29 | P.HPFP ---
History of Present Illness Primary Care Physician: No Primary Care Physician <Cullen Sullivan - 08/12/18 13:59> No Primary Care Physician <Melissa Tang 08/12/18 01:29> Chief Complaint: Alcohol intoxication <Melissa Tang 08/12/18 05:21> History of Present Illness: Patient is a 67-year-old with no significant past medical history brought to the ED via [facility] after suffering a witnessed syncopal episode at a bar in the setting of heavy alcohol use (per ED note). Patient hit her head after the syncopal episode. Patient had no family at bedside. She reports she does not remember what happened or how she ended up in the hospital. Patient was alert and oriented x3. Denies any issues or pain anywhere in her body. Denies headache, chest pain, fever, chills, nausea, vomiting, abdominal pain, back pain, head pain, dizziness. Patient states she feels 100% her normal self. The last thing she remembers is drinking heavily at a bar and then going home. States she usually drinks 4 pack of beer only on the weekends. However last night she drank more than her usual amount. Allergies: None Medications: None Denies any significant past medical history of surgical history Social history Patient lives with and pets Alcohol: 4 pack of beer on the weekends for about 10 years Cigarette smoking: Denies Patient smokes marijuana about once per week and denies any other illicit drug use. 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 <Melissa Tang 08/12/18 01: 29> - Medical History Medical History: Medical History (Last Updated 08/12/18 @ 02:06 by Lor Franklin, RN) Patient denies significant medical history <Cullen Sullivan 08/12/18 13:59> Medical History (Last Updated 08/12/18 @ 02:06 by Lor Franklin, RN) Patient denies significant medical history <Melissa Tang - 08/12/18 05:21> - Surgical History Surgical History: Surgical History (Last Updated 08/12/18 @ 02:06 by Lor Franklin, RN) H/O section <Cullen Sullivan 08/12/18 13:59> Surgical History (Last Updated 08/12/18 @ 02:06 by Lor Franklin, RN) H/O section <Melissa Tang - 08/12/18 05:21> - Tobacco History Second Hand Smoke Exposure: No <Melissa Tang 08/12/18 01:29> Tobacco Use In Past 30 Days: No <Melissa Tang 08/12/18 01:29> Smoking Status: Never smoker <Melissa Tang 08/12/18 01:29> - Alcohol History How Often Do You Have a Drink Containing Alcohol: 4 or more times a week < Melissa Tang 08/12/18 01:29> - Substance Use History Substance History: No History of Abuse <Melissa Tang 08/12/18 01:29> - Travel History Recent Travel in the [facility] Within the Last 8 Weeks: No <Melissa Tang 01:29> Recent Travel Out of the Country Within the Last 8 Weeks: No <Melissa Tang 08/12/18 01:29> - Immunization History Tetanus Immunization: Unsure <Melissa Tang 08/12/18 01:29> Medications and Allergies Allergies Allergy/AdvReac Type Severity Reaction Status Date / Time No Known Allergies Allergy Uncoded 02/13/15 09:20 <Cullen Sullivan 08/12/18 13:59> Home Medications Medication Instructions Recorded Confirmed Type No Known Home Medications 08/12/18 08/12/18 History <Cullen Sullivan 08/12/18 13:59> Active Medications: Active Medications Acetaminophen (Tylenol) 650 mg PO Q4H PRN PRN Reason: Temp > 100.4 Al Hydroxide/Mg Hydroxide (Milk Of Magnesia Liq) 30 ml PO Q12H PRN PRN Reason: Mild Constipation Bisacodyl (Dulcolax Supp) 10 mg RECTAL DAILY PRN PRN Reason: SEVERE CONSITIPATION Enoxaparin Sodium (Lovenox Inj) 30 mg SQ Q24H [facility] Last Admin: 08/12/18 05:19 Dose: 30 mg Flumazenil (Romazecon Inj) 0.2 mg IV.PUSH Q1M PRN PRN Reason: OVERSEDATION Folic Acid (Folic Acid) 1 mg PO DAILY [facility] Stop: 08/17/18 08:59 Last Admin: 08/12/18 08:56 Dose: 1 mg Sodium Chloride (Ns Inj) 1,000 mls @ 100 mls/hr IV.CONT .Q10H [facility] Last Admin: 08/12/18 12:00 Dose: 100 mls/hr Lactulose (Lactulose Liq) 30 ml PO DAILY PRN PRN Reason: SEVERE CONSITIPATION Lorazepam (Ativan) 1 mg PO Q4H PRN PRN Reason: for CIWA 8-10 Lorazepam (Ativan) 2 mg PO Q2H PRN PRN Reason: for CIWA 11-14 Lorazepam (Ativan Inj) 2 mg IV.PUSH Q2H PRN PRN Reason: for CIWA 11-14 Lorazepam (Ativan Inj) 2 mg IV.PUSH Q1H PRN PRN Reason: for CIWA 15-20 Lorazepam (Ativan Inj) 2 mg IV.PUSH Q15M PRN PRN Reason: for CIWA > 20 Lorazepam (Ativan Inj) 1 mg IV.PUSH Q4H PRN PRN Reason: for CIWA 8-10 Multivitamins/Minerals (Theragran-M) 1 tab PO DAILY [facility] Stop: 08/17/18 08:59 Last Admin: 08/12/18 08:57 Dose: 1 tab Senna/Docusate Sodium (Ceci-Colace) 1 tab PO BID [facility] Last Admin: 08/12/18 08:56 Dose: 1 tab Sennosides (Senokot) 17.2 mg PO Q12H PRN PRN Reason: Moderate Constipation Sodium Chloride (Ns Flush) 2 ml IV.FLUSH BID [facility] Sodium Chloride (Ns Flush) 2 ml IV.FLUSH PRN PRN PRN Reason: FLUSH AFTER USING IV ACCESS Thiamine HCl (Vitamin B1) 100 mg PO DAILY [facility] Last Admin: 08/12/18 08:56 Dose: 100 mg <Cullen Sullivan L - 08/12/18 13:59> Exam Vital signs: Vital Signs 08/11/18 20:56 08/11/18 21:18 08/11/18 23:23 Temperature 98.1 F Pulse Rate 80 73 58 L Respiratory Rate 14 Blood Pressure 105/63 113/66 Pulse Oximetry 97 100 97 08/12/18 01:59 08/12/18 03:32 08/12/18 07:41 Temperature 97.6 F 97.8 F Pulse Rate 60 57 L 70 Respiratory Rate 14 18 16 Blood Pressure 104/59 L 117/70 109/66 Pulse Oximetry 98 97 97 08/12/18 11:57 Temperature 98.6 F Pulse Rate 54 L Respiratory Rate 16 Blood Pressure 113/58 L Pulse Oximetry 97 Intake & Output 08/11/18 08/12/18 08/12/18 18:59 06:59 18:59 Intake Total 1110 / 1110 1000 / 1000 Balance 1110 / 1110 1000 / 1000 Weight 72 kg Intake: IV 1110 / 1110 1000 / 1000 NS Inj 1,000 ML @ 100 mls/hr IV 1000 / 1000 .CONT .Q10H [facility] Rx#:[id number] Calcium Chloride Inj 1 GM In NS 110 / 110 Inj 100 ML @ 110 mls/hr IV.SIG ONCE ONE Rx#:[id number] NS Inj 1,000 ML @ Wide Open IV. 1000 / 1000 SIG BOLUS ONE Rx#:[id number] Other: # Voids 0 Date of Last Bowel Movement 08/11/18 Weight On Admission 72 kg <Cullen Sullivan L - 08/12/18 13:59> Vital Signs 08/11/18 20:56 08/11/18 21:18 08/11/18 23:23 Temperature 98.1 F Pulse Rate 80 73 58 L Respiratory Rate 14 Blood Pressure 105/63 113/66 Pulse Oximetry 97 100 97 Intake & Output 08/11/18 08/11/18 08/12/18 06:59 18:59 06:59 Intake Total 1110 / 1110 Balance 1110 / 1110 Weight 72 kg Intake: IV 1110 / 1110 Calcium Chloride Inj 1 GM In NS 110 / 110 Inj 100 ML @ 110 mls/hr IV.SIG ONCE ONE Rx#:[id number] NS Inj 1,000 ML @ Wide Open IV. 1000 / 1000 SIG BOLUS ONE Rx#:[id number] <Melissa Tang D 08/12/18 01:29> - Constitutional no acute distress <Melissa Tang D 08/12/18 05:44> - Routine HEENT Exam Head: Present: normocephalic. Absent: laceration, hematoma, scalp tenderness, facial swelling <Melissa Tang D 08/12/18 05:44> Eye: Present: EOMI, PERRL <Melissa Tang 08/12/18 05:44> ENT: Present: mucous membranes dry <Melissa Tang D 08/12/18 05:44> - Routine Neck Exam Present: supple, full ROM. Absent: JVD, lymphadenopathy, tenderness <Melissa Tang 08/12/18 05:44> - Routine Chest/Breast/Axilla Exam Chest wall: Absent: tenderness <Melissa Tang 08/12/18 05:44> - Routine Respiratory Exam Present: CTA bilaterally. Absent: accessory muscle use <Melissa Tang 09/17 05:44> - Routine Cardiovascular Exam Present: RRR, S1, S2. Absent: murmur, gallop, rubs <Melissa Tang 05:44> - Routine Abdominal Exam Present: soft, normoactive bowel sounds. Absent: tenderness, distended, rebound , guarding <Melissa Tang D 08/12/18 05:44> Comments: No CVA tenderness bilaterally <Melissa Tang D 08/12/18 06:02> - Routine Extremities Exam Present: pulses intact, normal capillary refill. Absent: edema, full ROM, calf tenderness <Melissa Tang D 08/12/18 05:44> Comments: No focal neurological deficits 5/5 muscle strength in all 4 extremities. <KittyMelissa Daphney 08/12/18 05:44> - Routine Skin Exam Present: intact <Melissa Tang D - 08/12/18 05:44> - Routine Neurological Exam Present: oriented X3, CN II-XII intact, normal reflexes, plantar reflex, moving all extremities, normal tone, normal speech. Absent: sensory deficit, motor deficit, altered mental status, vision grossly intact, hearing grossly intact, tremors, asterixis <Melissa Tang D - 08/12/18 05:44> Results - Labs Result diagrams: 08/12/18 10:05 08/12/18 10:05 <Cullen Sullivan L - 08/12/18 13:59> Abnormal lab results 08/11/18 08/11/18 08/11/18 Range/Units 21:21 21:22 21:22 RBC (4.00-5.30) mil/mm3 Hgb (11.6-15.3) gm/dL Hct (35.0-46.0) % Plt Count (150-450) th/mm3 PT 12.4 H (9.8-11.6) sec Sodium 135 L (136-145) meq/L Chloride (98-107) meq/L Carbon Dioxide (21.0-32.0) meq/L BUN (7-18) mg/dL Creatinine (0.50-1.00) mg/dL POC Glucose 127 H (68-110) mg/dl Random Glucose 124 H (74-106) mg/dL Calcium 6.8 L* (8.5-10.1) mg/dL Prot Corrected Calcium 7.2 L* (8.5-10.1) mg/dL AST 195 H (15-37) U/L ALT 147 H (10-53) U/L Alkaline Phosphatase 119 H (45-117) U/L Ammonia (11-32) mcmol/L Troponin I (0.02-0.05) ng/mL Total Protein 6.3 L (6.4-8.2) g/dL Albumin 2.4 L (3.4-5.0) g/dL U Cannabinoids Screen (Neg) Serum Alcohol (0-5) mg/dL 08/11/18 08/11/18 08/12/18 Range/Units 21:22 21:22 05:30 RBC 3.52 L (4.00-5.30) mil/mm3 Hgb (11.6-15.3) gm/dL Hct 33.5 L (35.0-46.0) % Plt Count 125 L (150-450) th/mm3 PT (9.8-11.6) sec Sodium (136-145) meq/L Chloride (98-107) meq/L Carbon Dioxide (21.0-32.0) meq/L BUN (7-18) mg/dL Creatinine (0.50-1.00) mg/dL POC Glucose (68-110) mg/dl Random Glucose (74-106) mg/dL Calcium (8.5-10.1) mg/dL Prot Corrected Calcium (8.5-10.1) mg/dL AST (15-37) U/L ALT (10-53) U/L Alkaline Phosphatase (45-117) U/L Ammonia (11-32) mcmol/L Troponin I Less than 0.02 L (0.02-0.05) ng/mL Total Protein (6.4-8.2) g/dL Albumin (3.4-5.0) g/dL U Cannabinoids Screen Pos H (Neg) Serum Alcohol 298 H (0-5) mg/dL 08/12/18 08/12/18 08/12/18 Range/Units 10:05 10:05 10:05 RBC 3.49 L (4.00-5.30) mil/mm3 Hgb 11.2 L (11.6-15.3) gm/dL Hct 33.9 L (35.0-46.0) % Plt Count 102 L (150-450) th/mm3 PT (9.8-11.6) sec Sodium (136-145) meq/L Chloride 109 H (98-107) meq/L Carbon Dioxide 18.1 L (21.0-32.0) meq/L BUN 6 L (7-18) mg/dL Creatinine 0.46 L (0.50-1.00) mg/dL POC Glucose (68-110) mg/dl Random Glucose (74-106) mg/dL Calcium 7.5 L (8.5-10.1) mg/dL Prot Corrected Calcium (8.5-10.1) mg/dL AST 174 H (15-37) U/L ALT 140 H (10-53) U/L Alkaline Phosphatase 120 H (45-117) U/L Ammonia 43 H (11-32) mcmol/L Troponin I (0.02-0.05) ng/mL Total Protein 6.2 L (6.4-8.2) g/dL Albumin 2.4 L (3.4-5.0) g/dL U Cannabinoids Screen (Neg) Serum Alcohol (0-5) mg/dL Short CBC 08/11/18 08/12/18 Range/Units 21:22 10:05 WBC 8.4 4.5 (4.0-11.0) th/mm3 Hgb 11.6 11.2 L (11.6-15.3) gm/dL Hct 33.5 L 33.9 L (35.0-46.0) % Plt Count 125 L 102 L (150-450) th/mm3 BMP 08/11/18 08/12/18 21:22 10:05 Sodium 135 L 140 Potassium 3.6 3.9 Chloride 103 109 H Carbon Dioxide 21.0 18.1 L BUN 9 6 L Creatinine 0.66 0.46 L Calcium 6.8 L* 7.5 L Cardiac Enzymes 08/11/18 Range/Units 21:22 Troponin I Less than 0.02 L (0.02-0.05) ng/mL Liver Function 08/11/18 08/12/18 Range/Units 21:22 10:05 Total Bilirubin 0.4 0.4 (0.2-1.0) mg/dL AST 195 H 174 H (15-37) U/L ALT 147 H 140 H (10-53) U/L Alkaline Phosphatase 119 H 120 H (45-117) U/L Albumin 2.4 L 2.4 L (3.4-5.0) g/dL Urine 08/12/18 Range/Units 05:30 Urine Color Straw (Yellw/Straw) Urine Clarity Clear (Clear) Urine pH 6.0 (5.0-8.5) Ur Specific [place] 1.003 (1.002-1.035) Urine Protein Negative (Neg-Trace) mg/dL Urine Glucose (UA) Negative (Negative) mg/dL <Cullen Sullivan L - 08/12/18 13:59> Abnormal lab results 08/11/18 08/11/18 08/11/18 Range/Units 21:21 21:22 21:22 RBC (4.00-5.30) mil/mm3 Hct (35.0-46.0) % Plt Count (150-450) th/mm3 PT 12.4 H (9.8-11.6) sec Sodium 135 L (136-145) meq/L POC Glucose 127 H (68-110) mg/dl Random Glucose 124 H (74-106) mg/dL Calcium 6.8 L* (8.5-10.1) mg/dL Prot Corrected Calcium 7.2 L* (8.5-10.1) mg/dL AST 195 H (15-37) U/L ALT 147 H (10-53) U/L Alkaline Phosphatase 119 H (45-117) U/L Troponin I (0.02-0.05) ng/mL Total Protein 6.3 L (6.4-8.2) g/dL Albumin 2.4 L (3.4-5.0) g/dL Serum Alcohol (0-5) mg/dL 08/11/18 08/11/18 Range/Units 21:22 21:22 RBC 3.52 L (4.00-5.30) mil/mm3 Hct 33.5 L (35.0-46.0) % Plt Count 125 L (150-450) th/mm3 PT (9.8-11.6) sec Sodium (136-145) meq/L POC Glucose (68-110) mg/dl Random Glucose (74-106) mg/dL Calcium (8.5-10.1) mg/dL Prot Corrected Calcium (8.5-10.1) mg/dL AST (15-37) U/L ALT (10-53) U/L Alkaline Phosphatase (45-117) U/L Troponin I Less than 0.02 L (0.02-0.05) ng/mL Total Protein (6.4-8.2) g/dL Albumin (3.4-5.0) g/dL Serum Alcohol 298 H (0-5) mg/dL Short CBC 08/11/18 Range/Units 21:22 WBC 8.4 (4.0-11.0) th/mm3 Hgb 11.6 (11.6-15.3) gm/dL Hct 33.5 L (35.0-46.0) % Plt Count 125 L (150-450) th/mm3 BMP 08/11/18 21:22 Sodium 135 L Potassium 3.6 Chloride 103 Carbon Dioxide 21.0 BUN 9 Creatinine 0.66 Calcium 6.8 L* Cardiac Enzymes 08/11/18 Range/Units 21:22 Troponin I Less than 0.02 L (0.02-0.05) ng/mL Liver Function 08/11/18 Range/Units 21:22 Total Bilirubin 0.4 (0.2-1.0) mg/dL AST 195 H (15-37) U/L ALT 147 H (10-53) U/L Alkaline Phosphatase 119 H (45-117) U/L Albumin 2.4 L (3.4-5.0) g/dL <Melissa Tang - 08/12/18 01:29> - Imaging Impressions Chest X-Ray 08/11/18 21:17 CONCLUSION: Minimal basilar atelectasis. No effusion or pneumothorax. Head CT 08/12/18 00:00 CONCLUSION: Negative CT Head non contrast. . <Cullen Sullivan - 08/12/18 13:59> Impressions Chest X-Ray 08/11/18 21:17 CONCLUSION: Minimal basilar atelectasis. No effusion or pneumothorax. Head CT 08/12/18 00:00 CONCLUSION: Negative CT Head non contrast. . <Melissa Tang - 08/12/18 01:29> Caprini VTE Risk Assessment Caprini VTE Risk Assessment: Moderate/High Risk (score >= 2) <Melissa Tang - 08/12/18 05:44> Caprini Risk Assessment Model: Point Value = 1 Point Value = 2 Point Value = 3 Point Value = 5 Age 41-60 Minor surgery BMI > 25 kg/m2 Swollen legs Varicose veins or History of unexplained or recurrent spontaneous Oral contraceptives or hormone replacement Sepsis (< 1 month) Serious lung disease, including pneumonia (< 1 month) Abnormal pulmonary function Acute myocardial infarction Congestive heart failure (< 1 month) History of inflammatory bowel disease Medical patient at bed rest Age 61-74 Arthroscopic surgery Major open surgery (> 45 min) Laparoscopic surgery (> 45 min) Malignancy Confined to bed (> 72 hours) Immobilizing plaster cast Central venous access Age >= 75 History of VTE Family history of VTE Factor V Leiden Prothrombin [id number] Lupus anticoagulant Anticardiolipin antibodies Elevated serum homocysteine Heparin-induced thrombocytopenia Other congenital or acquired thrombophilia Stroke (< 1 month) Elective arthroplasty Hip, pelvis, or leg fracture Acute spinal cord injury (< 1 month) <Cullen Sullivan - 08/12/18 13:59> Point Value = 1 Point Value = 2 Point Value = 3 Point Value = 5 Age 41-60 Minor surgery BMI > 25 kg/m2 Swollen legs Varicose veins or History of unexplained or recurrent spontaneous Oral contraceptives or hormone replacement Sepsis (< 1 month) Serious lung disease, including pneumonia (< 1 month) Abnormal pulmonary function Acute myocardial infarction Congestive heart failure (< 1 month) History of inflammatory bowel disease Medical patient at bed rest Age 61-74 Arthroscopic surgery Major open surgery (> 45 min) Laparoscopic surgery (> 45 min) Malignancy Confined to bed (> 72 hours) Immobilizing plaster cast Central venous access Age >= 75 History of VTE Family history of VTE Factor V Leiden Prothrombin [id number] Lupus anticoagulant Anticardiolipin antibodies Elevated serum homocysteine Heparin-induced thrombocytopenia Other congenital or acquired thrombophilia Stroke (< 1 month) Elective arthroplasty Hip, pelvis, or leg fracture Acute spinal cord injury (< 1 month) <Melissa Tang D - 08/12/18 01:29> Prophylaxis Regimen: Total Risk Factor Score Risk Level Prophylaxis Regimen 0-1 Low Early ambulation 2 Moderate Order ONE of the following: *Sequential Compression Device (SCD) *Heparin 5000 units SQ BID 3-4 Higher Order ONE of the following medications: *Heparin 5000 units SQ TID *Enoxaparin/Lovenox 40 mg SQ daily (WT < 150 kg, CrCl > 30 mL/min) *Enoxaparin/Lovenox 30 mg SQ daily (WT < 150 kg, CrCl > 10-29 mL/min) *Enoxaparin/Lovenox 30 mg SQ BID (WT < 150 kg, CrCl > 30 mL/min) AND/OR *Sequential Compression Device (SCD) 5 or more Highest Order ONE of the following medications: *Heparin 5000 units SQ TID (Preferred with Epidurals) *Enoxaparin/Lovenox 40 mg SQ daily (WT < 150 kg, CrCl > 30 mL/min) *Enoxaparin/Lovenox 30 mg SQ daily (WT < 150 kg, CrCl > 10-29 mL/min) *Enoxaparin/Lovenox 30 mg SQ BID (WT < 150 kg, CrCl > 30 mL/min) AND *Sequential Compression Device (SCD) <Cullen Sullivan L - 08/12/18 13:59> Total Risk Factor Score Risk Level Prophylaxis Regimen 0-1 Low Early ambulation 2 Moderate Order ONE of the following: *Sequential Compression Device (SCD) *Heparin 5000 units SQ BID 3-4 Higher Order ONE of the following medications: *Heparin 5000 units SQ TID *Enoxaparin/Lovenox 40 mg SQ daily (WT < 150 kg, CrCl > 30 mL/min) *Enoxaparin/Lovenox 30 mg SQ daily (WT < 150 kg, CrCl > 10-29 mL/min) *Enoxaparin/Lovenox 30 mg SQ BID (WT < 150 kg, CrCl > 30 mL/min) AND/OR *Sequential Compression Device (SCD) 5 or more Highest Order ONE of the following medications: *Heparin 5000 units SQ TID (Preferred with Epidurals) *Enoxaparin/Lovenox 40 mg SQ daily (WT < 150 kg, CrCl > 30 mL/min) *Enoxaparin/Lovenox 30 mg SQ daily (WT < 150 kg, CrCl > 10-29 mL/min) *Enoxaparin/Lovenox 30 mg SQ BID (WT < 150 kg, CrCl > 30 mL/min) AND *Sequential Compression Device (SCD) <Melissa Tang D - 08/12/18 01:29> Assessment and Plan - Assessment (1) Alcohol intoxication Code(s): F10.929 - Alcohol use, unspecified with intoxication, unspecified Status: Resolved (2) Syncope Code(s): R55 - Syncope and collapse Status: Acute (3) Long QT interval Code(s): R94.31 - Abnormal electrocardiogram [ECG] [EKG] Status: Acute (4) Transaminitis Code(s): R74.0 - Nonspecific elevation of levels of transaminase and lactic acid dehydrogenase [LDH] Status: Acute (5) Nutrition, metabolism, and development symptoms Code(s): R63.8 - Other symptoms and signs concerning food and fluid intake Status: Acute <Cullen Sullivan Da - 08/12/18 13:59> (1) Alcohol intoxication Code(s): F10.929 - Alcohol use, unspecified with intoxication, unspecified Status: Acute Plan: Patient is a 67-year-old with no significant past medical history brought to the ED via [facility] after suffering a witnessed syncopal episode at a bar in the setting of heavy alcohol use (per ED note). Patient does not recall events leading to her transfer to the emergency room. On admission vital signs within normal limits CBC and coagulation profile with within normal limits Patient found to have alcohol level of 298 CMP revealed sodium of 135, glucose of 127, and calcium of 7.2 in the setting of elevated LFTs Patient with normal physical examination and asymptomatic. Chest x-ray: Minimal basilar atelectasis. No effusion or pneumothorax Continue to monitor vital signs WA protocol Rally pack IV fluids Titrate oxygen as needed to maintain O2 saturations above 92% Follow-up: Repeat a.m. labs Ammonia UDS UA (2) Syncope Code(s): R55 - Syncope and collapse Status: Acute Plan: Per ED note patient suffered a witnessed syncopal episode and hit her head at a bar last night. However, patient has no recollection of the event as she was under the influence of heavy alcohol. She denies any prior history of syncope or any chest discomfort, palpitations, or dizziness. Patient denies any cardiac history EKG showing QT prolongation Per ED physician read Troponin less than 0.02 CT head: Negative Patient placed on telemetry Follow-up echo (3) Nutrition, metabolism, and development symptoms Code(s): R63.8 - Other symptoms and signs concerning food and fluid intake Status: Acute Plan: Fluids: 100 mL/hour Electrolytes: Replete as needed, status post 1 g of calcium chloride in the ED Diet: Pending bedside swallow DVT prophylaxis: Lovenox s.q. <Melissa Tang - 08/12/18 05:44> - Attending Attestation The exam, history, and the medical decision-making described in the above note were completed with the assistance of the resident physician. I reviewed and agree with the findings presented. I attest that I had a [id number] encounter with the patient on the same day, and personally performed and documented my assessment and findings in the medical record. Please see my documentation for 08/12/18. <Cullen Sullivan - 08/12/18 13:59>
[2018-08-12] MEDS ORDERED: Acetaminophen 325 MG Tablet PO PRN (01:30)
[2018-08-12] MEDS ORDERED: Bisacodyl 10 MG Supp RECTAL PRN (01:30)
[2018-08-12] MEDS: Sod Chloride 0.9% Inj 1,000 ML IV.CONT SCH ×4 (01:56→23:38)
[2018-08-12] MEDS ORDERED: Haloperidol Inj 5 MG/ML Ampul IV.PUSH PRN (03:45)
[2018-08-12] MEDS ORDERED: LORazepam 1 MG Tablet PO PRN (03:45)
[2018-08-12] MEDS: Enoxaparin Inj 30 MG/0.3 ML Syringe SQ SCH (05:19)
[2018-08-12 05:53] LABS: Bilirubin,Urine Negative (Negative); Clarity,Urine Clear (Clear); Color,Urine Straw (Yellw/Straw); Glucose,Urine (UA) Negative (Negative); Leukocyte Esterase,Urine Negative (Negative); Nitrite,Urine Negative (Negative); Specific Gravity,Urine 1.003 (1.002-1.035); Squamous Epithelial Cell,Urine <1 /hpf (0-5)
[2018-08-12 05:59] LABS: Amphetamine Screen,Urine Neg (Neg); Barbiturate Screen,Urine Neg (Neg); Cannabinoid Screen,Urine Pos (Neg); Cocaine Screen,Urine Neg (Neg)
[2018-08-12 06:00] LABS: Opiate Screen,Urine Neg (Neg)
[2018-08-12] MEDS: Folic Acid 1 MG Tablet PO SCH (08:56)
[2018-08-12] MEDS: Senna/Docusate Sodium 8.6/50 MG Tablet PO SCH ×2 (08:56→20:50)
[2018-08-12] MEDS: Multivitamin/Minerals Therapeutic Tablet PO SCH (08:57)
[2018-08-12] MEDS ORDERED: Sodium Chloride 0.9% 2 ML Flush PRN IV.FLUSH (09:16)
[2018-08-12 10:21] LABS: Baso % (Auto) 0.4 % (0.0-2.0); Eos # (Auto) 0.1 th/mm3 (0.0-0.4); Eos % (Auto) 2.8 % (0.0-4.0); Hematocrit 33.9 % (35.0-46.0); Hemoglobin 11.2 gm/dL (11.6-15.3); Lymph # (Auto) 1.4 th/mm3 (1.0-4.8); Lymph % (Auto) 30.8 % (9.0-44.0); Mean Corpuscular HGB Conc 33.1 % (32.0-36.0); Mean Corpuscular Hemoglobin 32.1 pg (27.0-34.0); Mean Corpuscular Volume 96.9 fL (80.0-100.0); Mean Platelet Volume 7.8 fL (7.0-11.0); Mono # (Auto) 0.3 th/mm3 (0.0-0.9); Mono % (Auto) 6.4 % (0.0-8.0); Neut # (Auto) 2.7 th/mm3 (1.8-7.7); Neut % (Auto) 59.6 % (16.0-70.0); Platelet Count 102 th/mm3 (150-450); Red Blood Count 3.49 mil/mm3 (4.00-5.30); Red Cell Distribution Width 13.6 % (11.6-17.2); White Blood Count 4.5 th/mm3 (4.0-11.0)
[2018-08-12 10:47] LABS: Albumin 2.4 g/dL (3.4-5.0); Anion Gap 13 meq/L (5-15); Aspartate Aminotransferase 174 U/L (15-37); Blood Urea Nitrogen 6 mg/dL (7-18); Calcium 7.5 mg/dL (8.5-10.1); Carbon Dioxide 18.1 meq/L (21.0-32.0); Chloride 109 meq/L (98-107); Glomerular Filtration Rate Greater Than 89 mL/min (>89); Glucose,Random 88 mg/dL (74-106); Magnesium 1.8 mg/dL (1.5-2.5); Potassium 3.9 meq/L (3.5-5.1); Sodium 140 meq/L (136-145)
[2018-08-12 10:48] LABS: Alanine Aminotransferase 140 U/L (10-53)
[2018-08-12 10:50] LABS: Alkaline Phosphatase 120 U/L (45-117); Total Protein 6.2 g/dL (6.4-8.2)
--- NOTE | 2018-08-12 12:02 | ECG ---
Date Performed: 08/12/2018 Time Performed: 04:37:29 PTAGE: 67 years EKG: SINUS BRADYCARDIA MARKED LEFT AXIS DEVIATION PROLONGED QT INTERVAL ABNORMAL ECG Since the PREVIOUS TRACING , no significant change noted PREVIOUS TRACIN08/11/2018 21.02 DOCTOR: Dwayne Chi Interpretating Date/Time 08/12/2018 12:00:39
--- NOTE | 2018-08-12 12:08 | ECG ---
Date Performed: 08/11/2018 Time Performed: 21:02:08 PTAGE: 67 years EKG: Sinus rhythm MARKED LEFT AXIS DEVIATION PATTERN CONSISTENT WITH PULMONARY DISEASE PROLONGED QT INTERVAL ABNORMAL ECG NO PREVIOUS TRACING DOCTOR: Dwayne Chi Interpretating Date/Time 08/12/2018 12:04:15
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
--- NOTE | 2018-08-12 16:45 | P.CONCA ---
History of Present Illness Service: Cardiology Consult date: 08/12/18 Requesting Physician: Chloe Evangelista Reason for Consult: Syncope Primary Care Provider: No Primary Care Physician Chief Complaint: Alcohol intoxication History of Present Illness: This is a 67-year-old female with a past medical history of ETOH and section. She denies any other medical history. She states, that the only thing she remembers is celebrating with her friends because one of them purchased a new boat. She remembers going to the bar to have a few drinks then waking up in the Emergency Department. She admits to not eating anything all day and drinking at least 4 beers, that she can remember. She denied any CP, dizziness, pressure or shortness of breath prior to her syncopal episode. She currently denies any CP, pressure, palpitations, dizziness, edema or SOB. 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 - Medical History Medical History: Medical History (Last Reviewed 08/12/18 @ 12:46 by Elton Keane) Patient denies significant medical history - Surgical History Surgical History: Surgical History (Last Updated 08/12/18 @ 02:06 by Lor Franklin RN) H/O section - Tobacco History Second Hand Smoke Exposure: No Tobacco Use In Past 30 Days: No Smoking Status: Never smoker - Alcohol History How Often Do You Have a Drink Containing Alcohol: 4 or more times a week - Substance Use History Substance History: No History of Abuse - Travel History Recent Travel in the [place] Within the Last 8 Weeks: No Recent Travel Out of the Country Within the Last 8 Weeks: No - Immunization History Tetanus Immunization: Unsure Medications and Allergies Allergies Allergy/AdvReac Type Severity Reaction Status Date / Time No Known Allergies Allergy Uncoded 02/13/15 09:20 Home Medications Medication Instructions Recorded Confirmed Type No Known Home Medications 08/12/18 08/12/18 History Active Medications: Active Medications Acetaminophen (Tylenol) 650 mg PO Q4H PRN PRN Reason: Temp > 100.4 Al Hydroxide/Mg Hydroxide (Milk Of Magnesia Liq) 30 ml PO Q12H PRN PRN Reason: Mild Constipation Bisacodyl (Dulcolax Supp) 10 mg RECTAL DAILY PRN PRN Reason: SEVERE CONSITIPATION Enoxaparin Sodium (Lovenox Inj) 30 mg SQ Q24H [facility] Last Admin: 08/12/18 05:19 Dose: 30 mg Flumazenil (Romazecon Inj) 0.2 mg IV.PUSH Q1M PRN PRN Reason: OVERSEDATION Folic Acid (Folic Acid) 1 mg PO DAILY [facility] Stop: 08/17/18 08:59 Last Admin: 08/12/18 08:56 Dose: 1 mg Sodium Chloride (Ns Inj) 1,000 mls @ 100 mls/hr IV.CONT .Q10H [facility] Last Infusion: 08/12/18 13:45 Dose: 0 mls/hr Lactulose (Lactulose Liq) 30 ml PO DAILY PRN PRN Reason: SEVERE CONSITIPATION Lorazepam (Ativan) 1 mg PO Q4H PRN PRN Reason: for CIWA 8-10 Lorazepam (Ativan) 2 mg PO Q2H PRN PRN Reason: for CIWA 11-14 Lorazepam (Ativan Inj) 2 mg IV.PUSH Q2H PRN PRN Reason: for CIWA 11-14 Lorazepam (Ativan Inj) 2 mg IV.PUSH Q1H PRN PRN Reason: for CIWA 15-20 Lorazepam (Ativan Inj) 2 mg IV.PUSH Q15M PRN PRN Reason: for CIWA > 20 Lorazepam (Ativan Inj) 1 mg IV.PUSH Q4H PRN PRN Reason: for CIWA 8-10 Multivitamins/Minerals (Theragran-M) 1 tab PO DAILY [facility] Stop: 08/17/18 08:59 Last Admin: 08/12/18 08:57 Dose: 1 tab Senna/Docusate Sodium (Ceci-Colace) 1 tab PO BID [facility] Last Admin: 08/12/18 08:56 Dose: 1 tab Sennosides (Senokot) 17.2 mg PO Q12H PRN PRN Reason: Moderate Constipation Sodium Chloride (Ns Flush) 2 ml IV.FLUSH BID [facility] Sodium Chloride (Ns Flush) 2 ml IV.FLUSH PRN PRN PRN Reason: FLUSH AFTER USING IV ACCESS Thiamine HCl (Vitamin B1) 100 mg PO DAILY [facility] Last Admin: 08/12/18 08:56 Dose: 100 mg Exam Vital signs: Vital Signs 08/11/18 20:56 08/11/18 21:18 08/11/18 23:23 Temperature 98.1 F Pulse Rate 80 73 58 L Respiratory Rate 14 Blood Pressure 105/63 113/66 Pulse Oximetry 97 100 97 08/12/18 01:59 08/12/18 03:32 08/12/18 07:41 Temperature 97.6 F 97.8 F Pulse Rate 60 57 L 70 Respiratory Rate 14 18 16 Blood Pressure 104/59 L 117/70 109/66 Pulse Oximetry 98 97 97 08/12/18 11:57 Temperature 98.6 F Pulse Rate 54 L Respiratory Rate 16 Blood Pressure 113/58 L Pulse Oximetry 97 Intake & Output 08/11/18 08/12/18 08/12/18 18:59 06:59 18:59 Intake Total 1110 / 1110 1000 / 1000 Balance 1110 / 1110 1000 / 1000 Weight 72 kg Intake: IV 1110 / 1110 1000 / 1000 NS Inj 1,000 ML @ 100 mls/hr IV 1000 / 1000 .CONT .Q10H [facility]FFI Rx#:[id number] Calcium Chloride Inj 1 GM In NS 110 / 110 Inj 100 ML @ 110 mls/hr IV.SIG ONCE ONE Rx#:[id number] NS Inj 1,000 ML @ Wide Open IV. 1000 / 1000 SIG BOLUS ONE Rx#:[id number] Other: # Voids 0 Date of Last Bowel Movement 08/11/18 Weight On Admission 72 kg - Constitutional no acute distress - Routine HEENT Exam Head: Present: normocephalic Eye: Present: PERRL ENT: Present: mucous membranes moist - Routine Neck Exam Present: full ROM - Routine Respiratory Exam Present: CTA bilaterally - Routine Cardiovascular Exam Present: S1, S2. Absent: murmur, gallop, rubs - Routine Abdominal Exam Present: normoactive bowel sounds - Routine Extremities Exam Present: full ROM, pulses intact, normal capillary refill. Absent: cyanosis, clubbing, edema - Routine Skin Exam Present: intact - Routine Neurological Exam Present: oriented X3 Results 08/12/18 10:05 08/12/18 10:05 Cardiac Enzymes 08/11/18 08/11/18 08/12/18 Range/Units 21:22 21:22 10:05 AST 195 H 174 H (15-37) U/L Troponin I Less than 0.02 L (0.02-0.05) ng/mL Coagulation 08/11/18 Range/Units 21:22 PT 12.4 H (9.8-11.6) sec APTT 24.2 (23.4-31.7) sec CBC 08/11/18 08/12/18 Range/Units 21:22 10:05 WBC 8.4 4.5 (4.0-11.0) th/mm3 RBC 3.52 L 3.49 L (4.00-5.30) mil/mm3 Hgb 11.6 11.2 L (11.6-15.3) gm/dL Hct 33.5 L 33.9 L (35.0-46.0) % Plt Count 125 L 102 L (150-450) th/mm3 Neut # (Auto) 4.0 2.7 (1.8-7.7) th/mm3 Lymph # (Auto) 3.4 1.4 (1.0-4.8) th/mm3 [place] # (Auto) 0.6 0.3 (0.0-0.9) th/mm3 Eos # (Auto) 0.3 0.1 (0.0-0.4) th/mm3 Baso # (Auto) 0.1 0.0 (0.0-0.2) th/mm3 Comprehensive Metabolic Panel 08/11/18 08/12/18 Range/Units 21:22 10:05 Sodium 135 L 140 (136-145) meq/L Potassium 3.6 3.9 (3.5-5.1) meq/L Chloride 103 109 H (98-107) meq/L Carbon Dioxide 21.0 18.1 L (21.0-32.0) meq/L BUN 9 6 L (7-18) mg/dL Creatinine 0.66 0.46 L (0.50-1.00) mg/dL Calcium 6.8 L* 7.5 L (8.5-10.1) mg/dL AST 195 H 174 H (15-37) U/L ALT 147 H 140 H (10-53) U/L Alkaline Phosphatase 119 H 120 H (45-117) U/L Total Protein 6.3 L 6.2 L (6.4-8.2) g/dL Albumin 2.4 L 2.4 L (3.4-5.0) g/dL Intake and Output 08/12/18 08/12/1818 06:59 14:59 22:59 Intake Total 110 / 110 1000 / 1000 Balance 110 / 110 1000 / 1000 Intake: IV 110 / 110 1000 / 1000 NS Inj 1,000 ML @ 100 mls/hr IV 1000 / 1000 .CONT .Q10H RAFFI Rx#:[id number] Calcium Chloride Inj 1 GM In NS 110 / 110 Inj 100 ML @ 110 mls/hr IV.SIG ONCE ONE Rx#:[id number] Other: # Voids 0 Date of Last Bowel Movement 08/11/18 Weight 72 kg Weight On Admission 72 kg - Imaging and Cardiology Imaging: Impressions Chest X-Ray 08/11/18 21:17 CONCLUSION: Minimal basilar atelectasis. No effusion or pneumothorax. Head CT 08/12/18 00:00 CONCLUSION: Negative CT Head non contrast. . Assessment and Plan - Assessment (1) Syncope Code(s): R55 - Syncope and collapse Status: Acute (2) Nutrition, metabolism, and development symptoms Code(s): R63.8 - Other symptoms and signs concerning food and fluid intake Status: Acute (3) Alcohol intoxication Code(s): F10.929 - Alcohol use, unspecified with intoxication, unspecified Status: Resolved - Plan Place patient on telemetry for cardiac monitoring. Continue rehydration with IV fluids. We will get a 2D echo to evaluate left ventricular function. We will continue to monitor the patient during her hospitalization. The patient was seen and evaluated by Dr. Barrera who participated in care, management and decision making. - Attending Attestation Patient seen and examined. I reviewed and agree with the evaluation and plan as presented. Check echo. Continue monitoring on telemetry.
[2018-08-12] MEDS: Sodium Chloride 0.9% 2 ML Flush BID IV.FLUSH SCH (20:50)
[2018-08-13] MEDS: Enoxaparin Inj 30 MG/0.3 ML Syringe SQ SCH (05:55)
[2018-08-13] MEDS: Sod Chloride 0.9% Inj 1,000 ML IV.CONT SCH (06:48)
[2018-08-13] MEDS: Folic Acid 1 MG Tablet PO SCH (09:24)
[2018-08-13] MEDS: Multivitamin/Minerals Therapeutic Tablet PO SCH (09:24)
[2018-08-13] MEDS: Sodium Chloride 0.9% 2 ML Flush BID IV.FLUSH SCH ×2 (09:25→20:28)
[2018-08-13] MEDS: Senna/Docusate Sodium 8.6/50 MG Tablet PO SCH ×2 (09:25→20:27)
--- NOTE | 2018-08-13 10:14 | US ---
EXAM DATE: 08/13/2018 9:56 AM EST AGE/SEX: 67 years / Female INDICATIONS: Elevated liver functions. CLINICAL DATA: This is the patient's initial encounter. Patient reports that signs and symptoms have been present for 1 day and indicates a pain score of 0/10. MEDICAL/SURGICAL HISTORY: . ETOH. section. COMPARISON: No prior exams available for comparison. MEASUREMENTS: Liver:__ 17.8 cm. Common Bile Duct:__ 6mm. Right Kidney:__ 11.4 x 3.8 x 5.5 cm. FINDINGS: Liver: Nodular cirrhotic appearing liver. Small hypoechoic nodules present throughout the liver. No e vidence of biliary ductal dilatation. Portal Vein: Hepatopedal flow seen in portal vein. Common Duct: No intraluminal mass or stone visualized. Gallbladder: Mild wall thickening which is nonspecific in the setting of chronic liver disease and a scites. No stones. Pancreas: The visualized portions are within normal limits Right Kidney: Normal echotexture and cortical thickness. No mass or hydronephrosis. Other: Splenomegaly and ascites CONCLUSION: 1. Cirrhotic liver appearance with multiple discrete hepatic nodules. Further evaluation with Eovist MRI suggested 2. Splenomegaly and ascites. 3. Nonspecific gallbladder wall thickening. Electronically signed by: Villa Gomes MD 08/13/2018 10:13 AM EST
--- NOTE | 2018-08-13 11:24 | ECHRPT ---
Indication: SYNCOPE CONCLUSIONS Normal left ventricular size. Mild concentric left ventricular hypertrophy. The left ventricular systolic function is normal with an estimated ejection fraction in the range of 55-60%. No regional wall motion abnormalities are present. Trace mitral valve regurgitation. There is trace tricuspid valve regurgitation. The estimated pulmonary arterial pressure is 31 mmHg. BP: / HR: Rhythm: Sinus MEASUREMENTS (Male / Female) Normal Values Technical Quality:Good 2D ECHO LV Diastolic Diameter PLAX 4.7 cm 4.2 - 5.9 / 3.9 - 5.3 cm LV Systolic Diameter PLAX 3.0 cm IVS Diastolic Thickness 1.1 cm 0.6 - 1.0 / 0.6 - 0.9 cm LVPW Diastolic Thickness 1.1 cm 0.6 - 1.0 / 0.6 - 0.9 cm LV Relative Wall Thickness 0.5 LA Systolic Diameter LX 3.1 cm 3.0 - 4.0 / 2.7 - 3.8 cm LV Ejection Fraction MOD 4C 70.0 % LV Ejection Fraction 4C AL 70.3 % DOPPLER TR Peak Velocity 229.0 cm/s TR Peak Gradient 21.0 mmHg Right Atrial Pressure 10.0 mmHg Pulmonary Artery Systolic Pressu 31.0 mmHg Right Ventricular Systolic Press 31.0 mmHg FINDINGS LEFT VENTRICLE Normal left ventricular size. Mild concentric left ventricular hypertrophy. The left ventricular systolic function is normal with an estimated ejection fraction in the range of 55-60%. No regional wall motion abnormalities are present. RIGHT VENTRICLE Normal right ventricular size and systolic function. LEFT ATRIUM The left atrial size is normal. RIGHT ATRIUM The right atrial size is normal. ATRIAL SEPTUM Normal atrial septal thickness without atrial level shunting by limited color doppler interrogation. AORTA The aortic root and proximal ascending aorta are normal in size on limited imaging. MITRAL VALVE Structurally normal mitral valve. Trace mitral valve regurgitation. AORTIC VALVE Trileaflet aortic valve. No aortic valve stenosis or regurgitation. TRICUSPID VALVE Structurally normal tricuspid valve. There is trace tricuspid valve regurgitation. The estimated pulmonary arterial pressure is 31 mmHg. PULMONARY VALVE No pulmonary valve regurgitation or stenosis. VESSELS The inferior vena cava is normal in size. PERICARDIUM No pericardial effusion. Marcin Anne MD (Electronically Signed) Final Date:13 August 2018 11:23
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
[2018-08-13 12:18] LABS: Hematocrit 36.3 % (35.0-46.0); Hemoglobin 12.1 gm/dL (11.6-15.3); Mean Corpuscular HGB Conc 33.4 % (32.0-36.0); Mean Corpuscular Hemoglobin 32.2 pg (27.0-34.0); Mean Corpuscular Volume 96.5 fL (80.0-100.0); Platelet Count 101 th/mm3 (150-450); Red Blood Count 3.76 mil/mm3 (4.00-5.30); Red Cell Distribution Width 13.5 % (11.6-17.2); White Blood Count 4.1 th/mm3 (4.0-11.0)
--- NOTE | 2018-08-13 12:48 | ECG ---
Date Performed: 08/12/2018 Time Performed: 12:41:14 PTAGE: 67 years EKG: Sinus rhythm BORDERLINE LEFT AXIS DEVIATION BORDERLINE ECG Since the PREVIOUS TRACING , no significant change noted PREVIOUS TRACIN08/12/2018 04.37 DOCTOR: Collette Jones Interpretating Date/Time 08/13/2018 12:46:29
[2018-08-13 12:50] LABS: Alanine Aminotransferase 127 U/L (10-53); Albumin 2.5 g/dL (3.4-5.0); Anion Gap 7 meq/L (5-15); Aspartate Aminotransferase 146 U/L (15-37); Blood Urea Nitrogen 11 mg/dL (7-18); Calcium 7.7 mg/dL (8.5-10.1); Carbon Dioxide 28.2 meq/L (21.0-32.0); Chloride 109 meq/L (98-107); Glomerular Filtration Rate Greater Than 89 mL/min (>89); Glucose,Random 115 mg/dL (74-106); Potassium 3.9 meq/L (3.5-5.1); Sodium 144 meq/L (136-145)
[2018-08-13 12:54] LABS: Alkaline Phosphatase 128 U/L (45-117); Total Protein 6.2 g/dL (6.4-8.2)
[2018-08-13 14:11] LABS: Ferritin 38 ng/mL (8-252)
--- NOTE | 2018-08-13 14:53 | P.CONGI ---
History of Present Illness Consult date: 08/13/18 Consult reason: New diagnosis liver cirrhosis Chief complaint: alcohol intoxication History of Present Illness: This patient is a 67-year-old female who denies having any past medical history. Surgical history includes C-sections x3. She was brought to the emergency room on 08/11/2018 via EMS after experiencing a syncopal episode while drinking large amounts of alcohol. Upon consultation patient endorses that she drinks a 4 pack of beer every 2-3 days for the last 12 years. Prior to that the patient states that she drank vodka and spiced rum daily. Patient states she has had a total of 30 years of EtOH use. Patient denies any family history of gastrointestinal disorders and denies bleeding. Patient denies ever having had an EGD or colonoscopy in the past. Patient states she rarely uses Tylenol or ibuprofen. Patient denies any IV drug use or high risk sexual behaviors. Denies any abdominal pain nausea or vomiting. Upon admission, elevated liver function tests were noted. Liver ultrasound revealed nodular cirrhotic liver with multiple discrete hepatic nodules, splenomegaly and ascites. Our practice has been consulted to evaluate patient's elevated liver enzymes/newly diagnosed cirrhosis. 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 - Medical History Medical History: Medical History (Last Reviewed 08/12/18 @ 12:46 by Elton Keane) Patient denies significant medical history - Surgical History Surgical History: Surgical History (Last Updated 08/12/18 @ 02:06 by Lor Franklin RN) H/O section - Tobacco History Second Hand Smoke Exposure: No Tobacco Use In Past 30 Days: No Smoking Status: Never smoker - Alcohol History How Often Do You Have a Drink Containing Alcohol: 4 or more times a week - Substance Use History Substance History: No History of Abuse - Travel History Recent Travel in the [facility] Within the Last 8 Weeks: No Recent Travel Out of the Country Within the Last 8 Weeks: No - Immunization History Tetanus Immunization: Unsure <Sharyn Chaparro - Last Filed: 08/13/18 14:38> - Medical History Medical History: Medical History (Last Reviewed 08/12/18 @ 12:46 by Elton Keane) Patient denies significant medical history - Surgical History Surgical History: Surgical History (Last Updated 08/12/18 @ 02:06 by Lor Franklin RN) H/O section <Jose Angel Gutierrez - Last Filed: 08/13/18 20:56> Medications and Allergies Active Medications: Active Medications Al Hydroxide/Mg Hydroxide (Milk Of Magnesia Liq) 30 ml PO Q12H PRN PRN Reason: Mild Constipation Bisacodyl (Dulcolax Supp) 10 mg RECTAL DAILY PRN PRN Reason: SEVERE CONSITIPATION Enoxaparin Sodium (Lovenox Inj) 30 mg SQ Q24H [facility] Last Admin: 08/13/18 05:55 Dose: 30 mg Flumazenil (Romazecon Inj) 0.2 mg IV.PUSH Q1M PRN PRN Reason: OVERSEDATION Folic Acid (Folic Acid) 1 mg PO DAILY [facility] Stop: 08/17/18 08:59 Last Admin: 08/13/18 09:24 Dose: 1 mg Lactulose (Lactulose Liq) 30 ml PO DAILY PRN PRN Reason: SEVERE CONSITIPATION Lorazepam (Ativan) 1 mg PO Q4H PRN PRN Reason: for CIWA 8-10 Lorazepam (Ativan) 2 mg PO Q2H PRN PRN Reason: for CIWA 11-14 Lorazepam (Ativan Inj) 2 mg IV.PUSH Q2H PRN PRN Reason: for CIWA 11-14 Lorazepam (Ativan Inj) 2 mg IV.PUSH Q1H PRN PRN Reason: for CIWA 15-20 Lorazepam (Ativan Inj) 2 mg IV.PUSH Q15M PRN PRN Reason: for CIWA > 20 Lorazepam (Ativan Inj) 1 mg IV.PUSH Q4H PRN PRN Reason: for CIWA 8-10 Multivitamins/Minerals (Theragran-M) 1 tab PO DAILY [facility] Stop: 08/17/18 08:59 Last Admin: 08/13/18 09:24 Dose: 1 tab Senna/Docusate Sodium (Ceci-Colace) 1 tab PO BID [facility] Last Admin: 08/13/18 09:25 Dose: Not Given Sennosides (Senokot) 17.2 mg PO Q12H PRN PRN Reason: Moderate Constipation Sodium Chloride (Ns Flush) 2 ml IV.FLUSH BID [facility] Last Admin: 08/13/18 09:25 Dose: 2 ml Sodium Chloride (Ns Flush) 2 ml IV.FLUSH PRN PRN PRN Reason: FLUSH AFTER USING IV ACCESS Thiamine HCl (Vitamin B1) 100 mg PO DAILY [facility] Last Admin: 08/13/18 09:24 Dose: 100 mg <Sharyn Chaparro - Last Filed: 08/13/18 14:38> Active Medications: Active Medications Al Hydroxide/Mg Hydroxide (Milk Of Magnesia Liq) 30 ml PO Q12H PRN PRN Reason: Mild Constipation Bisacodyl (Dulcolax Supp) 10 mg RECTAL DAILY PRN PRN Reason: SEVERE CONSITIPATION Enoxaparin Sodium (Lovenox Inj) 30 mg SQ Q24H [facility] Last Admin: 08/13/18 05:55 Dose: 30 mg Flumazenil (Romazecon Inj) 0.2 mg IV.PUSH Q1M PRN PRN Reason: OVERSEDATION Folic Acid (Folic Acid) 1 mg PO DAILY [facility] Stop: 08/17/18 08:59 Last Admin: 08/13/18 09:24 Dose: 1 mg Lactulose (Lactulose Liq) 30 ml PO DAILY PRN PRN Reason: SEVERE CONSITIPATION Lorazepam (Ativan) 1 mg PO Q4H PRN PRN Reason: for CIWA 8-10 Lorazepam (Ativan) 2 mg PO Q2H PRN PRN Reason: for CIWA 11-14 Lorazepam (Ativan Inj) 2 mg IV.PUSH Q2H PRN PRN Reason: for CIWA 11-14 Lorazepam (Ativan Inj) 2 mg IV.PUSH Q1H PRN PRN Reason: for CIWA 15-20 Lorazepam (Ativan Inj) 2 mg IV.PUSH Q15M PRN PRN Reason: for CIWA > 20 Lorazepam (Ativan Inj) 1 mg IV.PUSH Q4H PRN PRN Reason: for CIWA 8-10 Multivitamins/Minerals (Theragran-M) 1 tab PO DAILY [facility] Stop: 08/17/18 08:59 Last Admin: 08/13/18 09:24 Dose: 1 tab Senna/Docusate Sodium (Ceci-Colace) 1 tab PO BID [facility] Last Admin: 08/13/18 20:27 Dose: 1 tab Sennosides (Senokot) 17.2 mg PO Q12H PRN PRN Reason: Moderate Constipation Sodium Chloride (Ns Flush) 2 ml IV.FLUSH BID [facility] Last Admin: 08/13/18 20:28 Dose: 2 ml Sodium Chloride (Ns Flush) 2 ml IV.FLUSH PRN PRN PRN Reason: FLUSH AFTER USING IV ACCESS Thiamine HCl (Vitamin B1) 100 mg PO DAILY [facility] Last Admin: 08/13/18 09:24 Dose: 100 mg <Hemaidan,Ammar - Last Filed: 08/13/18 20:56> Allergies Allergy/AdvReac Type Severity Reaction Status Date / Time No Known Allergies Allergy Uncoded 02/13/15 09:20 Home Medications Medication Instructions Recorded Confirmed Type No Known Home Medications 08/12/18 08/12/18 History Exam Vital signs: Vital Signs 08/12/18 20:00 08/12/18 23:32 08/13/18 03:36 Temperature 97.7 F 98.2 F 98.9 F Pulse Rate 84 84 71 Respiratory Rate 18 18 18 Blood Pressure 116/59 L 137/70 133/73 Pulse Oximetry 96 97 97 08/13/18 07:27 08/13/18 07:51 08/13/18 09:00 Temperature 98.5 F Pulse Rate 74 67 Respiratory Rate 18 Blood Pressure 129/61 Pulse Oximetry 96 96 Intake & Output 08/12/18 08/13/18 08/13/18 18:59 06:59 18:59 Intake Total 1000 / 1000 1240 / 1240 1000 / 1000 Balance 1000 / 1000 1240 / 1240 1000 / 1000 Intake: IV 1000 / 1000 1000 / 1000 1000 / 1000 NS Inj 1,000 ML @ 100 mls/hr IV 1000 / 1000 1000 / 1000 1000 / 1000 .CONT .Q10H [facility] Rx#:[id number] Oral 240 / 240 Other: # Voids 0 3 Date of Last Bowel Movement 08/12/18 08/12/18 # Bowel Movements 1 - Constitutional no acute distress - Routine HEENT Exam Head: Present: normocephalic - Routine Respiratory Exam Present: CTA bilaterally. Absent: accessory muscle use - Routine Abdominal Exam Present: soft, normoactive bowel sounds, distended. Absent: tenderness, guarding, firm - Routine Extremities Exam Present: pulses intact. Absent: edema - Routine Skin Exam Present: dry, warm - Routine Neurological Exam Present: alert, oriented X3 - Routine Psychiatric Exam Present: normal affect, cooperative <Sharyn Chaparro - Last Filed: 08/13/18 14:38> Vital signs: Vital Signs 08/12/18 23:32 08/13/18 03:36 08/13/18 07:27 Temperature 98.2 F 98.9 F 98.5 F Pulse Rate 84 71 74 Respiratory Rate 18 18 18 Blood Pressure 137/70 133/73 129/61 Pulse Oximetry 97 97 96 08/13/18 07:51 08/13/18 09:00 08/13/18 16:00 Temperature 98.1 F Pulse Rate 67 78 Respiratory Rate 18 Blood Pressure 139/78 Pulse Oximetry 96 97 08/13/18 20:00 Temperature 98.4 F Pulse Rate 74 Respiratory Rate 14 Blood Pressure 138/73 Pulse Oximetry 96 Intake & Output 08/13/18 08/13/18 08/14/18 06:59 18:59 06:59 Intake Total 1240 / 1240 1000 / 1000 Balance 1240 / 1240 1000 / 1000 Intake: IV 1000 / 1000 1000 / 1000 NS Inj 1,000 ML @ 100 mls/hr IV 1000 / 1000 1000 / 1000 .CONT .Q10H [facility] Rx#:[id number] Oral 240 / 240 Other: # Voids 3 Date of Last Bowel Movement 08/12/18 08/12/18 # Bowel Movements 1 <Jose Angel Gutierrez - Last Filed: 08/13/18 20:56> Results - Labs CBC & Chem 7: 08/13/18 12:00 08/13/18 12:00 Labs: Laboratory Results - last 24 hr 08/13/18 08/13/18 08/13/18 12:00 12:00 12:00 WBC 4.1 RBC 3.76 L Hgb 12.1 Hct 36.3 MCV 96.5 MCH 32.2 MCHC 33.4 RDW 13.5 Plt Count 101 L MPV 8.0 Sodium 144 Potassium 3.9 Chloride 109 H Carbon Dioxide 28.2 D Anion Gap 7 BUN 11 Creatinine 0.62 Estimated GFR Greater than 89 Random Glucose 115 H Calcium 7.7 L Ferritin 38 Cancelled Total Bilirubin 0.4 Cancelled Direct Bilirubin 0.2 Cancelled Indirect Bilirubin 0.2 Cancelled AST 146 H Cancelled ALT 127 H Cancelled Alkaline Phosphatase 128 H Cancelled Total Protein 6.2 L Cancelled Albumin 2.5 L Cancelled - Imaging Impressions Liver Ultrasound 08/13/18 00:00 CONCLUSION: 1. Cirrhotic liver appearance with multiple discrete hepatic nodules. Further evaluation with Eovist MRI suggested 2. Splenomegaly and ascites. 3. Nonspecific gallbladder wall thickening. <Sharyn Chaparro - Last Filed: 08/13/18 14:38> - Labs CBC & Chem 7: 08/13/18 12:00 08/13/18 12:00 Labs: Laboratory Results - last 24 hr 08/13/18 08/13/18 08/13/18 12:00 12:00 12:00 WBC 4.1 RBC 3.76 L Hgb 12.1 Hct 36.3 MCV 96.5 MCH 32.2 MCHC 33.4 RDW 13.5 Plt Count 101 L MPV 8.0 Sodium 144 Potassium 3.9 Chloride 109 H Carbon Dioxide 28.2 D Anion Gap 7 BUN 11 Creatinine 0.62 Estimated GFR Greater than 89 Random Glucose 115 H Calcium 7.7 L Iron TIBC % Saturation Ferritin 38 Cancelled Total Bilirubin 0.4 Cancelled Direct Bilirubin 0.2 Cancelled Indirect Bilirubin 0.2 Cancelled AST 146 H Cancelled ALT 127 H Cancelled Alkaline Phosphatase 128 H Cancelled Total Protein 6.2 L Cancelled Albumin 2.5 L Cancelled Tumor Marker AFP Hepatitis A IgM Ab Hep Bs Antigen Hep B Core IgM Ab Hep C IgG Ab 08/13/18 08/13/18 15:49 15:49 WBC RBC Hgb Hct MCV MCH MCHC RDW Plt Count MPV Sodium Potassium Chloride Carbon Dioxide Anion Gap BUN Creatinine Estimated GFR Random Glucose Calcium Iron 105 TIBC 370 % Saturation 28.4 Ferritin Total Bilirubin Direct Bilirubin Indirect Bilirubin AST ALT Alkaline Phosphatase Total Protein Albumin Tumor Marker AFP 13.3 H Hepatitis A IgM Ab Nonreactive Hep Bs Antigen Nonreactive Hep B Core IgM Ab Nonreactive Hep C IgG Ab Reactive H - Imaging Impressions Liver Ultrasound 08/13/18 00:00 CONCLUSION: 1. Cirrhotic liver appearance with multiple discrete hepatic nodules. Further evaluation with Eovist MRI suggested 2. Splenomegaly and ascites. 3. Nonspecific gallbladder wall thickening. <Jose Angel Gutierrez - Last Filed: 08/13/18 20:56> Assessment and Plan (1) Liver cirrhosis Status: Acute Code(s): K74.60 - Unspecified cirrhosis of liver - Plan This patient is a 67-year-old female who denies having any past medical history. Surgical history includes C-sections x3. She was brought to the emergency room on 08/11/2018 via EMS after experiencing a syncopal episode while drinking large amounts of alcohol. Upon consultation patient endorses that she drinks a 4 pack of beer every 2-3 days for the last 12 years. Prior to that the patient states that she drank vodka and spiced rum daily. Patient states she has had a total of 30 years of EtOH use. Patient denies any family history of gastrointestinal disorders and denies bleeding. Patient denies ever having had an EGD or colonoscopy in the past. Patient states she rarely uses Tylenol or ibuprofen. Patient denies any IV drug use or high risk sexual behaviors. Denies any abdominal pain nausea or vomiting. Upon admission, elevated liver function tests were noted. Liver ultrasound revealed nodular cirrhotic liver with multiple discrete hepatic nodules, splenomegaly and ascites. Our practice has been consulted to evaluate patient's elevated liver enzymes/newly diagnosed cirrhosis. Newly diagnosed cirrhosis Liver ultrasound done upon admission revealed the following findings: 1. Cirrhotic liver appearance with multiple discrete hepatic nodules. Further evaluation with Eovist MRI suggested 2. Splenomegaly and ascites. 3. Nonspecific gallbladder wall thickening. (08/13) WBC 4.1 hemoglobin 12.1 hematocrit 36.3 platelet count 101 INR 1.2 total bilirubin 0.4 direct bilirubin 0.2 indirect bilirubin 0.2 AST 146 ALT 127 alk phos 128 Likely related to alcohol abuse. Will proceed with liver workup. Plan -Diet as tolerated -Monitor liver function tests -Liver workup -Avoid hepatotoxins -Alcohol cessation -Ammonia level -Avoid NSAIDs and Tylenol -Supportive care -Further recommendations to follow This patient has been seen by myself and Dr. Gutierrez and this note is written on his behalf - Attending Attestation Dr. Gutierrez <Sharyn Chaparro - Last Filed: 08/13/18 14:38> (1) Liver cirrhosis Status: Acute Code(s): K74.60 - Unspecified cirrhosis of liver - Attending Attestation Patient was seen and examined, agree with above note, most likely intoxication related to alcohol, patient also newly diagnosed with cirrhosis she will need liver workup, she need to be abstinence of alcohol, we will check hepatitis panel <Jose Angel Gutierrez - Last Filed: 08/13/18 20:56> <Sharyn Chaparro - Last Filed: 08/13/18 14:38> (1) Liver cirrhosis Qualifiers: Ascites presence: without ascites <Jose Angel Gutierrez - Last Filed: 08/13/18 20:56> (1) Liver cirrhosis Qualifiers: Ascites presence: without ascites
--- NOTE | 2018-08-13 15:01 | P.PNCA ---
Subjective Interval history: Patient denies any CP, pressure, palpitations, dizziness, edema or SOB. Medications and Allergies Allergies Allergy/AdvReac Type Severity Reaction Status Date / Time No Known Allergies Allergy Uncoded 02/13/15 09:20 Home Medications Medication Instructions Recorded Confirmed Type No Known Home Medications 08/12/18 08/12/18 History Active Medications: Active Medications Al Hydroxide/Mg Hydroxide (Milk Of Magnesia Liq) 30 ml PO Q12H PRN PRN Reason: Mild Constipation Bisacodyl (Dulcolax Supp) 10 mg RECTAL DAILY PRN PRN Reason: SEVERE CONSITIPATION Enoxaparin Sodium (Lovenox Inj) 30 mg SQ Q24H [facility] Last Admin: 08/13/18 05:55 Dose: 30 mg Flumazenil (Romazecon Inj) 0.2 mg IV.PUSH Q1M PRN PRN Reason: OVERSEDATION Folic Acid (Folic Acid) 1 mg PO DAILY [facility] Stop: 08/17/18 08:59 Last Admin: 08/13/18 09:24 Dose: 1 mg Lactulose (Lactulose Liq) 30 ml PO DAILY PRN PRN Reason: SEVERE CONSITIPATION Lorazepam (Ativan) 1 mg PO Q4H PRN PRN Reason: for CIWA 8-10 Lorazepam (Ativan) 2 mg PO Q2H PRN PRN Reason: for CIWA 11-14 Lorazepam (Ativan Inj) 2 mg IV.PUSH Q2H PRN PRN Reason: for CIWA 11-14 Lorazepam (Ativan Inj) 2 mg IV.PUSH Q1H PRN PRN Reason: for CIWA 15-20 Lorazepam (Ativan Inj) 2 mg IV.PUSH Q15M PRN PRN Reason: for CIWA > 20 Lorazepam (Ativan Inj) 1 mg IV.PUSH Q4H PRN PRN Reason: for CIWA 8-10 Multivitamins/Minerals (Theragran-M) 1 tab PO DAILY [facility] Stop: 08/17/18 08:59 Last Admin: 08/13/18 09:24 Dose: 1 tab Senna/Docusate Sodium (Ceci-Colace) 1 tab PO BID [facility] Last Admin: 08/13/18 09:25 Dose: Not Given Sennosides (Senokot) 17.2 mg PO Q12H PRN PRN Reason: Moderate Constipation Sodium Chloride (Ns Flush) 2 ml IV.FLUSH BID [facility] Last Admin: 08/13/18 09:25 Dose: 2 ml Sodium Chloride (Ns Flush) 2 ml IV.FLUSH PRN PRN PRN Reason: FLUSH AFTER USING IV ACCESS Thiamine HCl (Vitamin B1) 100 mg PO DAILY [facility] Last Admin: 08/13/18 09:24 Dose: 100 mg Physical Exam Vital signs: Vital Signs 08/12/18 20:00 08/12/18 23:32 08/13/18 03:36 Temperature 97.7 F 98.2 F 98.9 F Pulse Rate 84 84 71 Respiratory Rate 18 18 18 Blood Pressure 116/59 L 137/70 133/73 Pulse Oximetry 96 97 97 08/13/18 07:27 08/13/18 07:51 08/13/18 09:00 Temperature 98.5 F Pulse Rate 74 67 Respiratory Rate 18 Blood Pressure 129/61 Pulse Oximetry 96 96 Intake & Output 08/12/18 08/13/18 08/13/18 18:59 06:59 18:59 Intake Total 1000 / 1000 1240 / 1240 1000 / 1000 Balance 1000 / 1000 1240 / 1240 1000 / 1000 Intake: IV 1000 / 1000 1000 / 1000 1000 / 1000 NS Inj 1,000 ML @ 100 mls/hr IV 1000 / 1000 1000 / 1000 1000 / 1000 .CONT .Q10H [facility] Rx#:[id number] Oral 240 / 240 Other: # Voids 0 3 Date of Last Bowel Movement 08/12/18 08/12/18 # Bowel Movements 1 - Constitutional no acute distress - Routine HEENT Exam Head: Present: normocephalic Eye: Present: PERRL ENT: Present: mucous membranes moist - Routine Neck Exam Present: full ROM - Routine Respiratory Exam Present: CTA bilaterally - Routine Cardiovascular Exam Present: S1, S2. Absent: murmur, gallop, rubs - Routine Abdominal Exam Present: normoactive bowel sounds - Routine Extremities Exam Present: full ROM, pulses intact, normal capillary refill. Absent: cyanosis, clubbing, edema - Routine Skin Exam Present: intact - Routine Neurological Exam Present: oriented X3 - Detailed Neurological Exam: Coma Scale Eye Opening: Spontaneous Verbal Response: Oriented Motor Response: Obey commands [place] C[facility] Base Coma Scale Total: 15 Results 08/13/18 12:00 08/13/18 12:00 Cardiac Enzymes 08/11/18 08/11/18 08/12/18 Range/Units 21:22 21:22 10:05 AST 195 H 174 H (15-37) U/L Troponin I Less than 0.02 L (0.02-0.05) ng/mL 08/13/18 08/13/18 Range/Units 12:00 12:00 AST 146 H Cancelled (15-37) U/L Troponin I (0.02-0.05) ng/mL Coagulation 08/11/18 Range/Units 21:22 PT 12.4 H (9.8-11.6) sec APTT 24.2 (23.4-31.7) sec CBC 08/11/18 08/12/18 08/13/18 Range/Units 21: 10:05 12:00 WBC 8.4 4.5 4.1 (4.0-11.0) th/mm3 RBC 3.52 L 3.49 L 3.76 L (4.00-5.30) mil/mm3 Hgb 11.6 11.2 L 12.1 (11.6-15.3) gm/dL Hct 33.5 L 33.9 L 36.3 (35.0-46.0) % Plt Count 125 L 102 L 101 L (150-450) th/mm3 Neut # (Auto) 4.0 2.7 (1.8-7.7) th/mm3 Lymph # (Auto) 3.4 1.4 (1.0-4.8) th/mm3 Gem # (Auto) 0.6 0.3 (0.0-0.9) th/mm3 Eos # (Auto) 0.3 0.1 (0.0-0.4) th/mm3 Baso # (Auto) 0.1 0.0 (0.0-0.2) th/mm3 Comprehensive Metabolic Panel 08/11/18 08/12/18 08/13/18 Range/Units 21: 10:05 12:00 Sodium 135 L 140 144 (136-145) meq/L Potassium 3.6 3.9 3.9 (3.5-5.1) meq/L Chloride 103 109 H 109 H (98-107) meq/L Carbon Dioxide 21.0 18.1 L 28.2 D (21.0-32.0) meq/L BUN 9 6 L 11 (7-18) mg/dL Creatinine 0.66 0.46 L 0.62 (0.50-1.00) mg/dL Calcium 6.8 L* 7.5 L 7.7 L (8.5-10.1) mg/dL Direct Bilirubin 0.2 (0.0-0.2) mg/dL Indirect Bilirubin 0.2 (0.0-0.8) mg/dL AST 195 H 174 H 146 H (15-37) U/L ALT 147 H 140 H 127 H (10-53) U/L Alkaline Phosphatase 119 H 120 H 128 H (45-117) U/L Total Protein 6.3 L 6.2 L 6.2 L (6.4-8.2) g/dL Albumin 2.4 L 2.4 L 2.5 L (3.4-5.0) g/dL 08/13/18 Range/Units 12:00 Sodium (136-145) meq/L Potassium (3.5-5.1) meq/L Chloride (98-107) meq/L Carbon Dioxide (21.0-32.0) meq/L BUN (7-18) mg/dL Creatinine (0.50-1.00) mg/dL Calcium (8.5-10.1) mg/dL Direct Bilirubin Cancelled (0.0-0.2) mg/dL Indirect Bilirubin Cancelled (0.0-0.8) mg/dL AST Cancelled (15-37) U/L ALT Cancelled (10-53) U/L Alkaline Phosphatase Cancelled (45-117) U/L Total Protein Cancelled (6.4-8.2) g/dL Albumin Cancelled (3.4-5.0) g/dL Intake and Output 08/12/18 08/13/18 08/13/18 22:59 06:59 14:59 Intake Total 1240 / 1240 1000 / 1000 Balance 1240 / 1240 1000 / 1000 Intake: IV 1000 / 1000 1000 / 1000 NS Inj 1,000 ML @ 100 mls/hr IV 1000 / 1000 1000 / 1000 .CONT .Q10H [facility] Rx#:[id number] Oral 240 / 240 Other: # Voids 3 Date of Last Bowel Movement 08/12/18 08/12/18 # Bowel Movements 1 - Imaging and Cardiology Imaging: Impressions Chest X-Ray 08/11/18 21:17 CONCLUSION: Minimal basilar atelectasis. No effusion or pneumothorax. Head CT 08/12/18 00:00 CONCLUSION: Negative CT Head non contrast. . Liver Ultrasound 08/13/18 00:00 CONCLUSION: 1. Cirrhotic liver appearance with multiple discrete hepatic nodules. Further evaluation with Eovist MRI suggested 2. Splenomegaly and ascites. 3. Nonspecific gallbladder wall thickening. Assessment and Plan - Assessment (1) Syncope Code(s): R55 - Syncope and collapse Status: Acute (2) Nutrition, metabolism, and development symptoms Code(s): R63.8 - Other symptoms and signs concerning food and fluid intake Status: Acute (3) Alcohol intoxication Code(s): F10.929 - Alcohol use, unspecified with intoxication, unspecified Status: Resolved - Plan 2D echo shows preserved LV function with EF of 55-60%. No new cardiac issues at this time, continue current treatment plan. Continue to monitor the patient on telemetry. She has elevated liver enzymes, GI evaluation in progress. Patient can be discharged from a cardiac standpoint. The patient was seen and evaluated by Dr. Barrera who participated in care, management and decision making. - Attending Attestation Patient seen and examined. I reviewed and agree with the evaluation and plan as presented. Echo shows normal LV function. No new cardiac issues. She can be discharged from cardiac standpoint.
[2018-08-13 16:50] LABS: % Iron Saturation 28.4 % (20-50)
[2018-08-13 16:53] LABS: Alpha Fetoprotein Tumor Marker 13.3 ng/mL (0.5-8.0)
[2018-08-13 16:57] LABS: Hepatitits B Surface Antigen Nonreactive (Nonreactive)
[2018-08-13 17:30] LABS: Hepatitis A IgM Antibody Nonreactive (Nonreactive)
[2018-08-14] MEDS: Enoxaparin Inj 30 MG/0.3 ML Syringe SQ SCH (06:10)
[2018-08-14] MEDS: Senna/Docusate Sodium 8.6/50 MG Tablet PO SCH ×2 (08:36→21:26)
[2018-08-14] MEDS: Multivitamin/Minerals Therapeutic Tablet PO SCH (08:36)
[2018-08-14] MEDS: Folic Acid 1 MG Tablet PO SCH (08:36)
[2018-08-14] MEDS: Sodium Chloride 0.9% 2 ML Flush BID IV.FLUSH SCH ×2 (08:37→21:26)
[2018-08-14 08:55] LABS: Baso % (Auto) 0.9 % (0.0-2.0); Eos # (Auto) 0.2 th/mm3 (0.0-0.4); Eos % (Auto) 4.2 % (0.0-4.0); Hematocrit 36.5 % (35.0-46.0); Hemoglobin 12.3 gm/dL (11.6-15.3); Lymph # (Auto) 1.4 th/mm3 (1.0-4.8); Lymph % (Auto) 30.6 % (9.0-44.0); Mean Corpuscular HGB Conc 33.7 % (32.0-36.0); Mean Corpuscular Hemoglobin 32.2 pg (27.0-34.0); Mean Corpuscular Volume 95.5 fL (80.0-100.0); Mono # (Auto) 0.4 th/mm3 (0.0-0.9); Mono % (Auto) 8.6 % (0.0-8.0); Neut # (Auto) 2.5 th/mm3 (1.8-7.7); Neut % (Auto) 55.7 % (16.0-70.0); Platelet Count 99 th/mm3 (150-450); Red Blood Count 3.82 mil/mm3 (4.00-5.30); Red Cell Distribution Width 13.3 % (11.6-17.2); White Blood Count 4.6 th/mm3 (4.0-11.0)
[2018-08-14 09:20] LABS: Alanine Aminotransferase 129 U/L (10-53); Albumin 2.4 g/dL (3.4-5.0); Anion Gap 7 meq/L (5-15); Aspartate Aminotransferase 166 U/L (15-37); Blood Urea Nitrogen 11 mg/dL (7-18); Calcium 7.7 mg/dL (8.5-10.1); Carbon Dioxide 27.2 meq/L (21.0-32.0); Chloride 108 meq/L (98-107); Glomerular Filtration Rate Greater Than 89 mL/min (>89); Glucose,Random 104 mg/dL (74-106); Potassium 3.9 meq/L (3.5-5.1); Sodium 142 meq/L (136-145)
[2018-08-14 09:22] LABS: Alkaline Phosphatase 132 U/L (45-117); Total Protein 6.6 g/dL (6.4-8.2)
[2018-08-14 09:36] LABS: Platelet Morphology Normal (Normal)
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
--- NOTE | 2018-08-14 12:48 | ECG ---
Date Performed: 08/13/2018 Time Performed: 11:29:30 PTAGE: 67 years EKG: Sinus rhythm MARKED LEFT AXIS DEVIATION ABNORMAL ECG PREVIOUS TRACING : 08/12/2018 12.41 DOCTOR: Farzad Winn Interpretating Date/Time 08/14/2018 12:44:19
--- NOTE | 2018-08-14 14:05 | P.PNCA ---
Subjective Interval history: Patient denies any CP, pressure, palpitations, dizziness, edema or SOB. Patient states that she is feeling great and ready to go home. Medications and Allergies Allergies Allergy/AdvReac Type Severity Reaction Status Date / Time No Known Allergies Allergy Uncoded 02/13/15 09:20 Home Medications Medication Instructions Recorded Confirmed Type No Known Home Medications 08/12/18 08/12/18 History Active Medications: Active Medications Al Hydroxide/Mg Hydroxide (Milk Of Magnesia Liq) 30 ml PO Q12H PRN PRN Reason: Mild Constipation Bisacodyl (Dulcolax Supp) 10 mg RECTAL DAILY PRN PRN Reason: SEVERE CONSITIPATION Enoxaparin Sodium (Lovenox Inj) 30 mg SQ Q24H [facility] Last Admin: 08/14/18 06:10 Dose: 30 mg Flumazenil (Romazecon Inj) 0.2 mg IV.PUSH Q1M PRN PRN Reason: OVERSEDATION Folic Acid (Folic Acid) 1 mg PO DAILY [facility] Stop: 08/17/18 08:59 Last Admin: 08/14/18 08:36 Dose: 1 mg Lactulose (Lactulose Liq) 30 ml PO DAILY PRN PRN Reason: SEVERE CONSITIPATION Lorazepam (Ativan) 1 mg PO Q4H PRN PRN Reason: for CIWA 8-10 Lorazepam (Ativan) 2 mg PO Q2H PRN PRN Reason: for CIWA 11-14 Lorazepam (Ativan Inj) 2 mg IV.PUSH Q2H PRN PRN Reason: for CIWA 11-14 Lorazepam (Ativan Inj) 2 mg IV.PUSH Q1H PRN PRN Reason: for CIWA 15-20 Lorazepam (Ativan Inj) 2 mg IV.PUSH Q15M PRN PRN Reason: for CIWA > 20 Lorazepam (Ativan Inj) 1 mg IV.PUSH Q4H PRN PRN Reason: for CIWA 8-10 Multivitamins/Minerals (Theragran-M) 1 tab PO DAILY [facility] Stop: 08/17/18 08:59 Last Admin: 08/14/18 08:36 Dose: 1 tab Senna/Docusate Sodium (Ceci-Colace) 1 tab PO BID [facility] Last Admin: 08/14/18 08:36 Dose: 1 tab Sennosides (Senokot) 17.2 mg PO Q12H PRN PRN Reason: Moderate Constipation Sodium Chloride (Ns Flush) 2 ml IV.FLUSH BID [facility] Last Admin: 08/14/18 08:37 Dose: 2 ml Sodium Chloride (Ns Flush) 2 ml IV.FLUSH PRN PRN PRN Reason: FLUSH AFTER USING IV ACCESS Thiamine HCl (Vitamin B1) 100 mg PO DAILY [facility] Last Admin: 08/14/18 08:36 Dose: 100 mg Physical Exam Vital signs: Vital Signs 08/13/18 16:00 08/13/18 20:00 08/13/18 23:31 Temperature 98.1 F 98.4 F 98.7 F Pulse Rate 78 74 74 Respiratory Rate 18 14 14 Blood Pressure 139/78 138/73 136/71 Pulse Oximetry 97 96 97 08/14/18 03:47 08/14/18 08:00 08/14/18 08:34 Temperature 98.0 F 98.8 F Pulse Rate 63 65 Respiratory Rate 17 16 Blood Pressure 133/64 138/71 Pulse Oximetry 96 98 98 08/14/18 09:00 08/14/18 12:00 Temperature 98.1 F Pulse Rate 67 70 Respiratory Rate 12 Blood Pressure 138/72 Pulse Oximetry 94 L Intake & Output 08/13/18 08/14/18 08/14/18 18:59 06:59 18:59 Intake Total 1000 / 1000 480 / 480 Balance 1000 / 1000 480 / 480 Intake: IV 1000 / 1000 NS Inj 1,000 ML @ 100 mls/hr IV 1000 / 1000 .CONT .Q10H [facility] Rx#:[id number] Oral 480 / 480 Other: # Voids 4 Date of Last Bowel Movement 08/12/18 08/12/18 08/12/18 - Constitutional no acute distress - Routine HEENT Exam Head: Present: normocephalic Eye: Present: PERRL ENT: Present: mucous membranes moist - Routine Neck Exam Present: full ROM - Routine Respiratory Exam Present: CTA bilaterally - Routine Cardiovascular Exam Present: S1, S2. Absent: murmur, gallop, rubs - Routine Abdominal Exam Present: normoactive bowel sounds - Routine Extremities Exam Present: full ROM, pulses intact, normal capillary refill. Absent: cyanosis, clubbing, edema - Routine Skin Exam Present: intact - Routine Neurological Exam Present: oriented X3 - Detailed Neurological Exam: Coma Scale Eye Opening: Spontaneous Verbal Response: Oriented Motor Response: Obey commands [place] Coma Scale Total: 15 - Routine Psychiatric Exam Present: normal affect Results 08/14/18 07:19 08/14/18 07:19 Cardiac Enzymes 08/13/18 08/13/18 08/14/18 Range/Units 12:00 12:00 07:19 AST 146 H Cancelled 166 H (15-37) U/L CBC 08/13/18 08/14/18 Range/Units 12:00 07:19 WBC 4.1 4.6 (4.0-11.0) th/mm3 RBC 3.76 L 3.82 L (4.00-5.30) mil/mm3 Hgb 12.1 12.3 (11.6-15.3) gm/dL Hct 36.3 36.5 (35.0-46.0) % Plt Count 101 L 99 L (150-450) th/mm3 Neut # (Auto) 2.5 (1.8-7.7) th/mm3 Lymph # (Auto) 1.4 (1.0-4.8) th/mm3 [place] # (Auto) 0.4 (0.0-0.9) th/mm3 Eos # (Auto) 0.2 (0.0-0.4) th/mm3 Baso # (Auto) 0.0 (0.0-0.2) th/mm3 Comprehensive Metabolic Panel 08/13/18 08/13/18 08/14/18 Range/Units 12:00 12:00 07:19 Sodium 144 142 (136-145) meq/L Potassium 3.9 3.9 (3.5-5.1) meq/L Chloride 109 H 108 H (98-107) meq/L Carbon Dioxide 28.2 D 27.2 (21.0-32.0) meq/L BUN 11 11 (7-18) mg/dL Creatinine 0.62 0.63 (0.50-1.00) mg/dL Calcium 7.7 L 7.7 L (8.5-10.1) mg/dL Direct Bilirubin 0.2 Cancelled (0.0-0.2) mg/dL Indirect Bilirubin 0.2 Cancelled (0.0-0.8) mg/dL AST 146 H Cancelled 166 H (15-37) U/L ALT 127 H Cancelled 129 H (10-53) U/L Alkaline Phosphatase 128 H Cancelled 132 H (45-117) U/L Total Protein 6.2 L Cancelled 6.6 (6.4-8.2) g/dL Albumin 2.5 L Cancelled 2.4 L (3.4-5.0) g/dL Intake and Output 08/13/18 08/14/18 08/14/18 22:59 06:59 14:59 Intake Total 480 / 480 Balance 480 / 480 Intake: Oral 480 / 480 Other: # Voids 4 Date of Last Bowel Movement 08/12/18 08/12/18 - Imaging and Cardiology Imaging: Impressions Liver Ultrasound 08/13/18 00:00 CONCLUSION: 1. Cirrhotic liver appearance with multiple discrete hepatic nodules. Further evaluation with Eovist MRI suggested 2. Splenomegaly and ascites. 3. Nonspecific gallbladder wall thickening. Assessment and Plan - Assessment (1) Syncope Code(s): R55 - Syncope and collapse Status: Acute (2) Nutrition, metabolism, and development symptoms Code(s): R63.8 - Other symptoms and signs concerning food and fluid intake Status: Acute (3) Alcohol intoxication Code(s): F10.929 - Alcohol use, unspecified with intoxication, unspecified Status: Resolved - Plan No new cardiac issues. Patient remains stable from a cardiac standpoint, EF 55-60% Patient denies any recurrent syncopal episodes. Patient is being evaluated by GI due to elevated liver enzymes. Patient is cleared to be discharged from a cardiology standpoint. The patient was seen and evaluated by Dr. Barrera who participated in care, management and decision making. - Attending Attestation Patient seen and examined. I reviewed and agree with the evaluation and plan as presented. She remains stable from cardiac standpoint. OK to DC home from cardiac standpoint.
--- NOTE | 2018-08-14 15:19 | P.PNGI ---
Subjective Interval history: Patient walking around in room alert oriented answering simple questions denies any acute abdominal pain but does have occasional right upper quadrant soreness. No current diarrhea or constipation but did note diarrhea approximately 1 week ago and states she felt like she had food poisoning <Raven De Leon - Last Filed: 08/14/18 15:14> Physical Exam Vital signs: Vital Signs 08/13/18 16:00 08/13/18 20:00 08/13/18 23:31 Temperature 98.1 F 98.4 F 98.7 F Pulse Rate 78 74 74 Respiratory Rate 18 14 14 Blood Pressure 139/78 138/73 136/71 Pulse Oximetry 97 96 97 08/14/18 03:47 08/14/18 08:00 08/14/18 08:34 Temperature 98.0 F 98.8 F Pulse Rate 63 65 Respiratory Rate 17 16 Blood Pressure 133/64 138/71 Pulse Oximetry 96 98 98 08/14/18 09:00 08/14/18 12:00 Temperature 98.1 F Pulse Rate 67 70 Respiratory Rate 12 Blood Pressure 138/72 Pulse Oximetry 94 L Intake & Output 08/13/18 08/14/18 08/14/18 18:59 06:59 18:59 Intake Total 1000 / 1000 480 / 480 Balance 1000 / 1000 480 / 480 Intake: IV 1000 / 1000 NS Inj 1,000 ML @ 100 mls/hr IV 1000 / 1000 .CONT .Q10H [facility] Rx#:[id number] Oral 480 / 480 Other: # Voids 4 Date of Last Bowel Movement 08/12/18 08/12/18 08/12/18 - Constitutional mild distress, obese (Short), disheveled, cooperative - Routine HEENT Exam Head: Present: normocephalic ENT: Present: mucous membranes moist - Routine Respiratory Exam Present: decreased breath sounds (Mildly diminished at her bases but no obvious wheezing or rhonchi and no shortness of breath at rest) - Routine Cardiovascular Exam Present: S1, S2 - Routine Abdominal Exam Present: soft (Round, taut, active bowel sounds right upper quadrant discomfort to light palpation) <Raven De Leon - Last Filed: 08/14/18 15:14> Vital signs: Vital Signs 08/13/18 23:31 08/14/18 03:47 08/14/18 08:00 Temperature 98.7 F 98.0 F 98.8 F Pulse Rate 74 63 65 Respiratory Rate 14 17 16 Blood Pressure 136/71 133/64 138/71 Pulse Oximetry 97 96 98 08/14/18 08:34 08/14/18 09:00 08/14/18 12:00 Temperature 98.1 F Pulse Rate 67 70 Respiratory Rate 12 Blood Pressure 138/72 Pulse Oximetry 98 94 L 08/14/18 15:21 08/14/18 15:43 Temperature 98.1 F 98.4 F Pulse Rate 77 73 Respiratory Rate 16 16 Blood Pressure 143/70 H 134/71 Pulse Oximetry 97 98 Intake & Output 08/14/18 08/14/18 08/15/18 06:59 18:59 06:59 Intake Total 480 / 480 Balance 480 / 480 Intake: Oral 480 / 480 Other: # Voids 4 Date of Last Bowel Movement 08/12/18 08/12/18 <Jose Angel Gutierrez - Last Filed: 08/14/18 20:42> Results - Labs CBC & Chem 7: 08/14/18 07:19 08/14/18 07:19 Laboratory Results - last 24 hr 08/13/18 08/13/18 08/14/18 15:49 15:49 07:19 WBC 4.6 RBC 3.82 L Hgb 12.3 Hct 36.5 MCV 95.5 MCH 32.2 MCHC 33.7 RDW 13.3 Plt Count 99 L MPV 9.0 Prelim Diff (Auto) Slide review pending Neut % (Auto) 55.7 Lymph % (Auto) 30.6 [place] % (Auto) 8.6 H Eos % (Auto) 4.2 H Baso % (Auto) 0.9 Neut # (Auto) 2.5 Lymph # (Auto) 1.4 [place] # (Auto) 0.4 Eos # (Auto) 0.2 Baso # (Auto) 0.0 WBC Differential . Diff Scan Auto diff confirmed Differential Comment . Platelet Estimate Low L Platelet Morphology Normal Sodium Potassium Chloride Carbon Dioxide Anion Gap BUN Creatinine Estimated GFR Random Glucose Calcium Iron 105 TIBC 370 % Saturation 28.4 Total Bilirubin AST ALT Alkaline Phosphatase Total Protein Albumin Tumor Marker AFP 13.3 H Hepatitis A IgM Ab Nonreactive Hep Bs Antigen Nonreactive Hep B Core IgM Ab Nonreactive Hep C IgG Ab Reactive H 08/14/18 07:19 WBC RBC Hgb Hct MCV MCH MCHC RDW Plt Count MPV Prelim Diff (Auto) Neut % (Auto) Lymph % (Auto) [place] % (Auto) Eos % (Auto) Baso % (Auto) Neut # (Auto) Lymph # (Auto) [place] # (Auto) Eos # (Auto) Baso # (Auto) WBC Differential Diff Scan Differential Comment Platelet Estimate Platelet Morphology Sodium 142 Potassium 3.9 Chloride 108 H Carbon Dioxide 27.2 Anion Gap 7 BUN 11 Creatinine 0.63 Estimated GFR Greater than 89 Random Glucose 104 Calcium 7.7 L Iron TIBC % Saturation Total Bilirubin 0.6 AST 166 H ALT 129 H Alkaline Phosphatase 132 H Total Protein 6.6 Albumin 2.4 L Tumor Marker AFP Hepatitis A IgM Ab Hep Bs Antigen Hep B Core IgM Ab Hep C IgG Ab <Raven De Leon - Last Filed: 08/14/18 15:14> - Labs CBC & Chem 7: 08/14/18 07:19 08/14/18 07:19 Laboratory Results - last 24 hr 08/14/18 08/14/18 07:19 07:19 WBC 4.6 RBC 3.82 L Hgb 12.3 Hct 36.5 MCV 95.5 MCH 32.2 MCHC 33.7 RDW 13.3 Plt Count 99 L MPV 9.0 Prelim Diff (Auto) Slide review pending Neut % (Auto) 55.7 Lymph % (Auto) 30.6 [place] % (Auto) 8.6 H Eos % (Auto) 4.2 H Baso % (Auto) 0.9 Neut # (Auto) 2.5 Lymph # (Auto) 1.4 [place] # (Auto) 0.4 Eos # (Auto) 0.2 Baso # (Auto) 0.0 WBC Differential . Diff Scan Auto diff confirmed Differential Comment . Platelet Estimate Low L Platelet Morphology Normal Sodium 142 Potassium 3.9 Chloride 108 H Carbon Dioxide 27.2 Anion Gap 7 BUN 11 Creatinine 0.63 Estimated GFR Greater than 89 Random Glucose 104 Calcium 7.7 L Total Bilirubin 0.6 AST 166 H ALT 129 H Alkaline Phosphatase 132 H Total Protein 6.6 Albumin 2.4 L <Jose Angel Gutierrez - Last Filed: 08/14/18 20:42> Assessment and Plan (1) Liver cirrhosis Status: Acute Code(s): K74.60 - Unspecified cirrhosis of liver - Plan This patient is a 67-year-old female who denies having any past medical history. Surgical history includes C-sections x3. She was brought to the emergency room on 08/11/2018 via EMS after experiencing a syncopal episode while drinking large amounts of alcohol. Upon consultation patient endorses that she drinks a 4 pack of beer every 2-3 days for the last 12 years. Prior to that the patient states that she drank vodka and spiced rum daily. Patient states she has had a total of 30 years of EtOH use. Patient denies any family history of gastrointestinal disorders and denies bleeding. Patient denies ever having had an EGD or colonoscopy in the past. Patient states she rarely uses Tylenol or ibuprofen. Patient denies any IV drug use or high risk sexual behaviors. Denies any abdominal pain nausea or vomiting. Upon admission, elevated liver function tests were noted. Liver ultrasound revealed nodular cirrhotic liver with multiple discrete hepatic nodules, splenomegaly and ascites. Our practice has been consulted to evaluate patient's elevated liver enzymes/newly diagnosed cirrhosis. Newly diagnosed cirrhosis Liver ultrasound done upon admission revealed the following findings: 1. Cirrhotic liver appearance with multiple discrete hepatic nodules. Further evaluation with Eovist MRI suggested 2. Splenomegaly and ascites. 3. Nonspecific gallbladder wall thickening. (08/13) WBC 4.1 hemoglobin 12.1 hematocrit 36.3 platelet count 101 INR 1.2 total bilirubin 0.4 direct bilirubin 0.2 indirect bilirubin 0.2 AST 146 ALT 127 alk phos 128 Likely related to alcohol abuse. Will proceed with liver workup. 08/14/2018 current hemoglobin 12.3 no obvious bleeding right upper quadrant discomfort to light palpation, direct no nausea no vomiting. Continue cirrhosis diagnosis and positive hepatitis C which could be the source of her cirrhosis. Patient states they have a friend who has hepatitis C but she denies any drug use present or in the past. Alpha-fetoprotein 13.3 PT/INR 1.2. Patient will need follow-up in the GI office after she is discharged from the hospital with advanced GI Plan Diet as tolerated per attending Liver workup pending, hepatitis C RNA PCR pending Monitor patient's LFTs Consider liver biopsy Avoid alcohol Avoid hepatotoxins Further recommendations to follow Patient was seen per myself and Dr. 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
[2018-08-15 03:32] VITALS: PULSE 63; O2SAT 97
[2018-08-15] MEDS: Enoxaparin Inj 30 MG/0.3 ML Syringe SQ SCH (05:55)
[2018-08-15 07:04] LABS: Baso % (Auto) 0.7 % (0.0-2.0); Eos # (Auto) 0.2 th/mm3 (0.0-0.4); Eos % (Auto) 4.3 % (0.0-4.0); Hematocrit 36.7 % (35.0-46.0); Hemoglobin 12.5 gm/dL (11.6-15.3); Lymph # (Auto) 1.5 th/mm3 (1.0-4.8); Lymph % (Auto) 27.7 % (9.0-44.0); Mean Corpuscular Hemoglobin 32.2 pg (27.0-34.0); Mean Corpuscular Volume 94.9 fL (80.0-100.0); Mean Platelet Volume 8.4 fL (7.0-11.0); Mono # (Auto) 0.4 th/mm3 (0.0-0.9); Mono % (Auto) 7.4 % (0.0-8.0); Neut # (Auto) 3.2 th/mm3 (1.8-7.7); Neut % (Auto) 59.9 % (16.0-70.0); Platelet Count 103 th/mm3 (150-450); Red Blood Count 3.86 mil/mm3 (4.00-5.30); Red Cell Distribution Width 13.1 % (11.6-17.2); White Blood Count 5.4 th/mm3 (4.0-11.0)
[2018-08-15 07:15] VITALS: BP 128/71; RESP 16; TEMP 98.3
[2018-08-15 07:30] LABS: Alanine Aminotransferase 138 U/L (10-53); Albumin 2.4 g/dL (3.4-5.0); Anion Gap 7 meq/L (5-15); Aspartate Aminotransferase 173 U/L (15-37); Blood Urea Nitrogen 12 mg/dL (7-18); Calcium 8.3 mg/dL (8.5-10.1); Carbon Dioxide 27.4 meq/L (21.0-32.0); Chloride 108 meq/L (98-107); Glomerular Filtration Rate Greater Than 89 mL/min (>89); Glucose,Random 104 mg/dL (74-106); Potassium 4.1 meq/L (3.5-5.1); Sodium 142 meq/L (136-145)
[2018-08-15 07:32] LABS: Alkaline Phosphatase 129 U/L (45-117); Total Protein 6.5 g/dL (6.4-8.2)
--- NOTE | 2018-08-15 08:20 | P.PNFP ---
Subjective Interval history: Patient slept well overnight. Denies any headaches, dizziness, abdominal pain, chest pain, or shortness of breath. Discussed with patient the importance of following up with GI for her liver disease as well as establishing a primary care physician. <Chloe Evangelista C - 08/15/18 08:28> Results - Labs Result diagrams: 08/15/18 06:16 08/15/18 06:16 <Ricky Wood - 08/15/18 13:31> Abnormal lab results 08/15/18 08/15/18 Range/Units 06:16 06:16 RBC 3.86 L (4.00-5.30) mil/mm3 Plt Count 103 L (150-450) th/mm3 Eos % (Auto) 4.3 H (0.0-4.0) % Chloride 108 H (98-107) meq/L Calcium 8.3 L (8.5-10.1) mg/dL AST 173 H (15-37) U/L ALT 138 H (10-53) U/L Alkaline Phosphatase 129 H (45-117) U/L Albumin 2.4 L (3.4-5.0) g/dL Short CBC 08/15/18 Range/Units 06:16 WBC 5.4 (4.0-11.0) th/mm3 Hgb 12.5 (11.6-15.3) gm/dL Hct 36.7 (35.0-46.0) % Plt Count 103 L (150-450) th/mm3 BMP 08/15/18 06:16 Sodium 142 Potassium 4.1 Chloride 108 H Carbon Dioxide 27.4 BUN 12 Creatinine 0.62 Calcium 8.3 L Liver Function 08/15/18 Range/Units 06:16 Total Bilirubin 0.5 (0.2-1.0) mg/dL AST 173 H (15-37) U/L ALT 138 H (10-53) U/L Alkaline Phosphatase 129 H (45-117) U/L Albumin 2.4 L (3.4-5.0) g/dL <Ricky Wood R - 08/15/18 13:31> Abnormal lab results 08/14/18 08/14/18 08/15/18 Range/Units 07:19 07:19 06:16 RBC 3.82 L 3.86 L (4.00-5.30) mil/mm3 Plt Count 99 L 103 L (150-450) th/mm3 [place] % (Auto) 8.6 H (0.0-8.0) % Eos % (Auto) 4.2 H 4.3 H (0.0-4.0) % Platelet Estimate Low L (Normal) Chloride 108 H (98-107) meq/L Calcium 7.7 L (8.5-10.1) mg/dL AST 166 H (15-37) U/L ALT 129 H (10-53) U/L Alkaline Phosphatase 132 H (45-117) U/L Albumin 2.4 L (3.4-5.0) g/dL 08/15/18 Range/Units 06:16 RBC (4.00-5.30) mil/mm3 Plt Count (150-450) th/mm3 [place] % (Auto) (0.0-8.0) % Eos % (Auto) (0.0-4.0) % Platelet Estimate (Normal) Chloride 108 H (98-107) meq/L Calcium 8.3 L (8.5-10.1) mg/dL AST 173 H (15-37) U/L ALT 138 H (10-53) U/L Alkaline Phosphatase 129 H (45-117) U/L Albumin 2.4 L (3.4-5.0) g/dL Short CBC 08/14/18 08/15/18 Range/Units 07:19 06:16 WBC 4.6 5.4 (4.0-11.0) th/mm3 Hgb 12.3 12.5 (11.6-15.3) gm/dL Hct 36.5 36.7 (35.0-46.0) % Plt Count 99 L 103 L (150-450) th/mm3 BMP 08/14/18 08/15/18 07:19 06:16 Sodium 142 142 Potassium 3.9 4.1 Chloride 108 H 108 H Carbon Dioxide 27.2 27.4 BUN 11 12 Creatinine 0.63 0.62 Calcium 7.7 L 8.3 L Liver Function 08/14/18 08/15/18 Range/Units 07:19 06:16 Total Bilirubin 0.6 0.5 (0.2-1.0) mg/dL AST 166 H 173 H (15-37) U/L ALT 129 H 138 H (10-53) U/L Alkaline Phosphatase 132 H 129 H (45-117) U/L Albumin 2.4 L 2.4 L (3.4-5.0) g/dL <Chloe Evangelista C - 08/15/18 08:20> Physical Exam Vital signs: Vital Signs 08/14/18 15:21 08/14/18 15:43 08/14/18 20:00 Temperature 98.1 F 98.4 F 98.6 F Pulse Rate 77 73 77 Respiratory Rate 16 16 17 Blood Pressure 143/70 H 134/71 141/76 H Pulse Oximetry 97 98 97 08/14/18 23:55 08/15/18 03:30 08/15/18 07:14 Temperature 99.0 F 98.2 F 98.3 F Pulse Rate 82 63 Respiratory Rate 14 14 16 Blood Pressure 125/86 123/59 L 128/71 Pulse Oximetry 96 97 97 Intake & Output 08/14/18 08/15/18 08/15/18 18:59 06:59 18:59 Other: Date of Last Bowel Movement 08/12/18 08/12/18 <Ricky Wood R - 08/15/18 13:31> Vital Signs 08/14/18 08:34 08/14/18 09:00 08/14/18 12:00 Temperature 98.1 F Pulse Rate 67 70 Respiratory Rate 12 Blood Pressure 138/72 Pulse Oximetry 98 94 L 08/14/18 15:21 08/14/18 15:43 08/14/18 20:00 Temperature 98.1 F 98.4 F 98.6 F Pulse Rate 77 73 77 Respiratory Rate 16 16 17 Blood Pressure 143/70 H 134/71 141/76 H Pulse Oximetry 97 98 97 08/14/18 23:55 08/15/18 03:30 08/15/18 07:14 Temperature 99.0 F 98.2 F 98.3 F Pulse Rate 82 63 Respiratory Rate 14 14 16 Blood Pressure 125/86 123/59 L 128/71 Pulse Oximetry 96 97 97 Intake & Output 08/14/18 08/15/18 08/15/18 18:59 06:59 18:59 Other: Date of Last Bowel Movement 08/12/18 08/12/18 <Chloe Evangelista - 08/15/18 08:20> Narrative: General: Sitting up in bed, no distress Skin: No rashes or lesions, no jaundice, appears tanned HEENT: Normocephalic, atraumatic, no scleral icterus Neck: Supple CV: RRR, no murmurs, rubs, gallops, no events on telemetry that are concerning Lungs: CTAB Abdomen: soft, nontender, nondistended, mild fluid wave Ext: Pedal edema Neuro: Awake, alert, oriented X3 Psych: Appropriate mood and affect, fair insight <Chloe Evangelista C - 08/15/18 08:28> Assessment and Plan - Assessment (1) Liver cirrhosis Code(s): K74.60 - Unspecified cirrhosis of liver Status: Acute (2) Long QT interval Code(s): R94.31 - Abnormal electrocardiogram [ECG] [EKG] Status: Acute (3) Syncope Code(s): R55 - Syncope and collapse Status: Acute (4) Alcohol intoxication Code(s): F10.929 - Alcohol use, unspecified with intoxication, unspecified Status: Resolved (5) Hepatitis C Code(s): B19.20 - Unspecified viral hepatitis C without hepatic coma Status: Acute (6) Nutrition, metabolism, and development symptoms Code(s): R63.8 - Other symptoms and signs concerning food and fluid intake Status: Acute <Ricky Wood R - 08/15/18 13:31> (1) Liver cirrhosis Code(s): K74.60 - Unspecified cirrhosis of liver Status: Acute Plan: New diagnosis of cirrhosis based on liver ultrasound, elevated liver enzymes, history of alcohol abuse. Coags relatively normal. Platelet count depressed. Decreased albumin. AFP is 13.3. Also with positive hepatitis C status. - Consult GI: Would like to follow up with patient in outpatient setting. Immunology studies by GI pending. 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 QT prolongation in the setting of syncope. ECHO shows mild concentric left ventricular hypertrophy, preserved EF. - Mg/K+ replenished - Cardiology consulted, appreciate recommendations, no further workup at this time - Avoid medications that would prolong QT interval (3) Syncope Code(s): R55 - Syncope and collapse Status: Acute Plan: Per ED note patient suffered a witnessed syncopal episode and hit her head at a bar last night. However, patient has no recollection of the event as she was under the influence of heavy alcohol. She denies any prior history of syncope or any chest discomfort, palpitations, or dizziness. Patient denies any cardiac history EKG showing QT prolongation Troponin less than 0.02 CT head: Negative - QT interval prolongation, see separate problem/plan (4) Alcohol intoxication Code(s): F10.929 - Alcohol use, unspecified with intoxication, unspecified Status: Resolved Plan: Patient came in with alcohol intoxication which has resolved. No symptoms of alcohol withdrawal for now. CIWA protocol MV, thiamine, folic acid Encourage good hydration Consult case management, help with resources to help with alcohol abuse, such as AA meetings (5) Hepatitis C Code(s): B19.20 - Unspecified viral hepatitis C without hepatic coma Status: Acute Plan: Newly diagnosed with Hepatitis C during hospital stay. HCV RNA pending -GI consulted and will follow up outpatient. (6) Nutrition, metabolism, and development symptoms Code(s): R63.8 - Other symptoms and signs concerning food and fluid intake Status: Acute Plan: Fluids: oral fluids Electrolytes: Monitor and replace, especially magnesium and potassium Diet: Regular diet DVT prophylaxis: Lovenox s.q. Disposition: Patient discharge today with GI follow up and recommendation to establish with PCP. <Chloe Evangelista - 08/15/18 08:21> - Attending Attestation This patient was seen and. The assessment and plan was discussed with the resident physician and I am in agreement with continued medical care as documented in this encounter. RICKY WOOD MD <Ricky Wood - 08/15/18 13:21> <Chloe Evangelista C - Last Filed: 08/15/18 08:21> (1) Liver cirrhosis Qualifiers: Ascites presence: without ascites <Ricky Wood - Last Filed: 08/15/18 13:31> (1) Liver cirrhosis Qualifiers: Ascites presence: without ascites <Chloe Evangelista - Last Filed: 08/15/18 08:21> (1) Liver cirrhosis Qualifiers: Ascites presence: without ascites <Ricky Wood - Last Filed: 08/15/18 13:31> (1) Liver cirrhosis Qualifiers: Ascites presence: without ascites
--- NOTE | 2018-08-15 08:28 | P.DS ---
Date of admission: 08/14/18 17:02 Primary care physician: No Primary Care Physician Brief History from admission: Patient is a 67-year-old with no significant past medical history brought to the ED via [facility] after suffering a witnessed syncopal episode at a bar in the setting of heavy alcohol use (per ED note). Patient hit her head after the syncopal episode. Patient had no family at bedside. She reports she does not remember what happened or how she ended up in the hospital. Patient was alert and oriented x3. Denies any issues or pain anywhere in her body. Denies headache, chest pain, fever, chills, nausea, vomiting, abdominal pain, back pain , head pain, dizziness. Patient states she feels 100% her normal self. The last thing she remembers is drinking heavily at a bar and then going home. States she usually drinks 4 pack of beer only on the weekends. However last night she drank more than her usual amount. Allergies: None Medications: None Denies any significant past medical history of surgical history Social history Patient lives with and pets Alcohol: 4 pack of beer on the weekends for about 10 years Cigarette smoking: Denies Patient smokes marijuana about once per week and denies any other illicit drug use. Family history: Denies significant family history DS: Diagnosis - Discharge Diagnosis (1) Liver cirrhosis Status: Acute (2) Long QT interval Status: Acute (3) Syncope Status: Acute (4) Alcohol intoxication Status: Resolved (5) Hepatitis C Status: Acute (6) Nutrition, metabolism, and development symptoms Status: Acute DS: Summary Hospital Course: 67 year old female with PMH of alcohol abuse presented to ED after witnessed syncopal episode and hit her head at a bar last night. However, patient has no recollection of the event as she was under the influence of heavy alcohol. She denies any prior history of syncope or any chest discomfort, palpitations, or dizziness. Troponin less than 0.[address] head negative. EKG and telemetry showed long QT. ECHO shows mild concentric left ventricular hypertrophy, preserved EF. Cardiology was consulted and signed off with no other workup needed. New diagnosis of cirrhosis based on liver ultrasound, elevated liver enzymes, history of alcohol abuse. Coags relatively normal. Platelet count depressed. Decreased albumin. AFP is 13.3. Also with positive hepatitis C status. Iron profile normal, rules out hemochromatosis. Workup for Jean Carlos disease pending as well as other immunology studies. Hep C RNA levels also pending. Patient was counseled on alcohol abuse and avoidance of herbal supplement and Tylenol. GI was consulted and recommended outpatient follow up. Referral was given at discharge. During stay patient also met with case management for alcohol abuse and follow up medical care. - Time Spent with Patient Total time spent providing and/or coordinating discharge services: Less than 30 minutes Exam Vital signs: Vital Signs 08/14/18 08:34 08/14/18 09:00 08/14/18 12:00 Temperature 98.1 F Pulse Rate 67 70 Respiratory Rate 12 Blood Pressure 138/72 Pulse Oximetry 98 94 L 08/14/18 15:21 08/14/18 15:43 08/14/18 20:00 Temperature 98.1 F 98.4 F 98.6 F Pulse Rate 77 73 77 Respiratory Rate 16 16 17 Blood Pressure 143/70 H 134/71 141/76 H Pulse Oximetry 97 98 97 08/14/18 23:55 08/15/18 03:30 08/15/18 07:14 Temperature 99.0 F 98.2 F 98.3 F Pulse Rate 82 63 Respiratory Rate 14 14 16 Blood Pressure 125/86 123/59 L 128/71 Pulse Oximetry 96 97 97 Intake & Output 08/14/18 08/15/18 08/15/18 18:59 06:59 18:59 Other: Date of Last Bowel Movement 08/12/18 08/12/18 Narrative: General: Sitting up in bed, no distress Skin: No rashes or lesions, no jaundice, appears tanned HEENT: Normocephalic, atraumatic, no scleral icterus Neck: Supple CV: RRR, no murmurs, rubs, gallops, no events on telemetry that are concerning Lungs: CTAB Abdomen: soft, nontender, nondistended, mild fluid wave Ext: Pedal edema Neuro: Awake, alert, oriented X3 Psych: Appropriate mood and affect, fair insight Results Procedures completed during hospitalization: none Labs on day of discharge: Labs from last 24 hours 08/15/18 08/15/18 08/14/18 06:16 06:16 12:28 WBC 5.4 RBC 3.86 L Hgb 12.5 Hct 36.7 MCV 94.9 MCH 32.2 MCHC 34.0 RDW 13.1 Plt Count 103 L MPV 8.4 Prelim Diff (Auto) Neut % (Auto) 59.9 Lymph % (Auto) 27.7 [place] % (Auto) 7.4 Eos % (Auto) 4.3 H Baso % (Auto) 0.7 Neut # (Auto) 3.2 Lymph # (Auto) 1.5 [place] # (Auto) 0.4 Eos # (Auto) 0.2 Baso # (Auto) 0.0 WBC Differential . Diff Scan Differential Comment Auto diff final Platelet Estimate Platelet Morphology Sodium 142 Potassium 4.1 Chloride 108 H Carbon Dioxide 27.4 Anion Gap 7 BUN 12 Creatinine 0.62 Estimated GFR Greater than 89 Random Glucose 104 Calcium 8.3 L Total Bilirubin 0.5 AST 173 H ALT 138 H Alkaline Phosphatase 129 H Total Protein 6.5 Albumin 2.4 L HCV RNA (PCR) IUs/ml Pending HCV RNA PCR log IUs/ml Pending 08/14/18 08/14/18 07:19 07:19 WBC 4.6 RBC 3.82 L Hgb 12.3 Hct 36.5 MCV 95.5 MCH 32.2 MCHC 33.7 RDW 13.3 Plt Count 99 L MPV 9.0 Prelim Diff (Auto) Slide review pending Neut % (Auto) 55.7 Lymph % (Auto) 30.6 [place] % (Auto) 8.6 H Eos % (Auto) 4.2 H Baso % (Auto) 0.9 Neut # (Auto) 2.5 Lymph # (Auto) 1.4 [place] # (Auto) 0.4 Eos # (Auto) 0.2 Baso # (Auto) 0.0 WBC Differential . Diff Scan Auto diff confirmed Differential Comment . Platelet Estimate Low L Platelet Morphology Normal Sodium 142 Potassium 3.9 Chloride 108 H Carbon Dioxide 27.2 Anion Gap 7 BUN 11 Creatinine 0.63 Estimated GFR Greater than 89 Random Glucose 104 Calcium 7.7 L Total Bilirubin 0.6 AST 166 H ALT 129 H Alkaline Phosphatase 132 H Total Protein 6.6 Albumin 2.4 L HCV RNA (PCR) IUs/ml HCV RNA PCR log IUs/ml - Impressions ITS Impressions Chest X-Ray 08/11/18 21:17 CONCLUSION: Minimal basilar atelectasis. No effusion or pneumothorax. Head CT 08/12/18 00:00 CONCLUSION: Negative CT Head non contrast. . Liver Ultrasound 08/13/18 00:00 CONCLUSION: 1. Cirrhotic liver appearance with multiple discrete hepatic nodules. Further evaluation with Eovist MRI suggested 2. Splenomegaly and ascites. 3. Nonspecific gallbladder wall thickening. Discharge Plan - Discharge Disposition Patient Disposition: 01 Discharge Home - Discharge Condition Condition: Stable - Discharge Order Discharge Orders: Discharge Order (Routine); Ordered 08/15/18 Ordered By: Chloe Evangelista - Discharge Details Discharge Comment: Follow up with PCP in one week. Follow up with GI physicians in 1 week. - Physicians Team Primary Care Provider: Primary Care Shantel Julian Attending Provider: Cullen Sullivan Other Providers: Phylicia Barrera MD ; Jose Angel Gutierrez MD
[2018-08-15] MEDS: Senna/Docusate Sodium 8.6/50 MG Tablet PO SCH (09:35)
[2018-08-15] MEDS: Folic Acid 1 MG Tablet PO SCH (09:35)
[2018-08-15] MEDS: Multivitamin/Minerals Therapeutic Tablet PO SCH (09:36)
[2018-08-15] MEDS: Sodium Chloride 0.9% 2 ML Flush BID IV.FLUSH SCH (09:36)
[2018-08-15 14:00] LABS: Smooth Muscle Total Auto Abs Negative (Negative)
[2018-08-16 19:52] LABS: Hepatitis C RNA (PCR) log IUs 6.1
[2018-08-16 19:52] LABS: Ceruloplasmin 25 mg/dL (18-53)
[2018-08-18 03:52] LABS: DS DNA Ab (Crithidia) POSITIVE (NEGATIVE)
== END 2018-08-15 11:36 | disposition home or self-care (01) ==
LOC: NEPE 20:51 → NEDA 20:51 → NEPGCP 08-12 03:30
PROVIDERS: ADMIT Family Medicine; ATTEND Family Medicine